=== PATIENT | male | born 1995 | race Caucasian/White ===

== ENCOUNTER 2017-08-19 17:10 | Emergency (ER) | payer OTHER ==
--- NOTE | 2017-08-19 18:03 | ED ---
General Adult HPI - General Chief complaint: Urogenital Stated complaint: poss std Time Seen by Provider: 08/19/17 17:39 Source: patient, RN notes reviewed Mode of arrival: ambulatory Limitations: no limitations - History of Present Illness Initial comments: Patient 22-year-old male presented to the emergency room today with a chief complaint of wanting to be tested for herpes. Patient states that his girlfriend told him that she tested positive. He states that his knowledge she has not had any lesion or breaks. He states he has not noticed any unexplained lesions or rashes. Patient denies any other concern for any other STDs. He denies any other complaints or symptoms. Patient denies any recent fever, chills , shortness of breath, chest pain, back pain, abdominal pain, nausea or vomiting , numbness or tingling, headaches or visual changes, or any other complaints. - Related Data Home Medications Medication Instructions Recorded Confirmed No Known Home Medications [No 08/19/17 08/19/17 Known Home Medications] Allergies Allergy/AdvReac Type Severity Reaction Status Date / Time No Known Allergies Allergy Verified 08/19/17 17:36 Review of Systems ROS Statement: Those systems with pertinent positive or pertinent negative responses have been documented in the HPI. ROS Other: All systems not noted in ROS Statement are negative. Past Medical History Past Medical History: No Reported History Additional Past Medical History / Comment(s): kidney stones History of Any Multi-Drug Resistant Organisms: None Reported Past Surgical History: No Surgical Hx Reported Past Psychological History: No Psychological Hx Reported Smoking Status: Never smoker Past Alcohol Use History: None Reported Past Drug Use History: None Reported General Exam - General Exam Comments Initial Comments: General: The patient is awake and alert, in no distress, and does not appear acutely ill. Eye: Pupils are equal, round and reactive to light, extra-ocular movements are intact. No nystagmus. There is normal conjunctiva bilaterally. No signs of icterus. Ears, nose, mouth and throat: There are moist mucous membranes and no oral lesions. Neck: The neck is supple, there is no tenderness or JVD. Musculoskeletal: Normal ROM, no tenderness. Strength 5/5. Sensation intact. Pulses equal bilaterally 2+. Neurological: A&O x 3. CN II-XII intact, There are no obvious motor or sensory deficits. Coordination appears grossly intact. Speech is normal. Skin: Skin is warm and dry and no rashes or lesions are noted. Psychiatric: Cooperative, appropriate mood & affect, normal judgment. Limitations: no limitations Course Vital Signs 08/19/17 17:29 Temperature 98.3 F Pulse Rate 112 H Respiratory 18 Rate Blood Pressure 131/85 O2 Sat by Pulse 97 Oximetry Medical Decision Making - Medical Decision Making 22-year-old male presenting to the emergency room 1 to be tested for herpes. States girlfriend tested positive. Patient's asymptomatic. The patient will have blood test performed here in the emergency room. Results did not come back today. Patient is advised to follow-up with family physician. Patient advised to return for any other concerns. Disposition Clinical Impression: Herpes exposure Disposition: HOME SELF-CARE Condition: Good Instructions: Genital Herpes Simplex (ED) Additional Instructions: Please follow up with family doctor for further evaluation and test results. Is patient prescribed a controlled substance at d/c from ED?: No Referrals: None,Stated [Primary Care Provider] - 1-2 days Clau Reynolds MD [STAFF PHYSICIAN] - 1-2 days Time of Disposition: 18:03
[2017-08-19 18:46] VITALS: BP 127/73; PULSE 95; RESP 16; TEMP 97.7
[2017-08-22 03:09] LABS: Herpes simplex I and/or II IgM 0.66 INDEX (<=0.90); Herpes simplex IgG I Ab 0.03 (< or = 0.90); Herpes simplex IgG II Ab 0.06 (< or = 0.90)
== END 2017-08-19 18:46 | disposition home or self-care (01) ==
LOC: EC 17:10
DX: Z20.2 Contact with and (suspected) exposure to infections with a predominantly sexual mode of transmission (principal)
CPT/HCPCS: 36415; 86694; 86695; 86696; 99283

== ENCOUNTER 2021-05-27 08:42 | Observation (INO) | payer OTHER ==
[2021-05-27] MEDS ORDERED: KETOROLAC 15 MG/ML 1 ML VIAL IVP STA (09:01)
[2021-05-27] MEDS ORDERED: HYDROmorphone 0.5 MG/0.5 ML SYRINGE IVP STA (09:01)
[2021-05-27] MEDS ORDERED: AMPICILLIN-SULBACTAM 3 GM in SODIUM CHLORIDE 0.9% 100 ML IVPB STA (09:07)
--- NOTE | 2021-05-27 09:07 | ED ---
General Adult HPI - General Chief complaint: Skin/Abscess/Foreign Body Stated complaint: Poss Abscess Time Seen by Provider: 05/27/21 08:50 Source: patient, RN notes reviewed, old records reviewed Mode of arrival: ambulatory Limitations: no limitations - History of Present Illness Initial comments: This is a 25-year-old male who presents emergency Department complaining that he has what he believes to be an abscess in the perineum area and perirectal area. Patient states it started about 4 days ago he thought it was just a rash. Progressed to swelling and extreme tenderness. Patient states she can't even barely walk it hurts so much. Patient states he thought he saw a little blood in the urine today as well. Patient denies any abdominal pain patient denies any nausea vomiting. Patient said diarrhea. Patient denies any recent fever chills or cough. Patient denies any history of similar. Patient denies any drug use. - Related Data Home Medications Medication Instructions Recorded Confirmed No Known Home Medications 08/19/17 08/19/17 Allergies Allergy/AdvReac Type Severity Reaction Status Date / Time No Known Allergies Allergy Verified 05/27/21 08:50 Review of Systems ROS Statement: Those systems with pertinent positive or pertinent negative responses have been documented in the HPI. ROS Other: All systems not noted in ROS Statement are negative. Past Medical History Past Medical History: No Reported History Additional Past Medical History / Comment(s): kidney stones History of Any Multi-Drug Resistant Organisms: None Reported Past Surgical History: No Surgical Hx Reported Past Psychological History: No Psychological Hx Reported Smoking Status: Current every day smoker Past Alcohol Use History: None Reported Past Drug Use History: None Reported General Exam - General Exam Comments Initial Comments: GENERAL: Patient is well-developed and well-nourished. Patient is nontoxic and well- hydrated and is in moderate distress. ENT: Neck is soft and supple. No significant lymphadenopathy is noted. Oropharynx is clear. Moist mucous membranes. Neck has full range of motion without eliciting any pain. EYES: The sclera were anicteric and conjunctiva were pink and moist. Extraocular movements were intact and pupils were equal round and reactive to light. Eyelids were unremarkable. PULMONARY: Unlabored respirations. Good breath sounds bilaterally. No audible rales rhonchi or wheezing was noted. CARDIOVASCULAR: There is a regular rate and rhythm without any murmurs gallops or rubs. ABDOMEN: Soft and nontender with normal bowel sounds. No palpable organomegaly was noted. There is no palpable pulsatile mass. GENITALIA: Testicles and scrotum show no swelling or tenderness. There is an area on the left perineum that appears to be some an abscess is swollen and exquisitely te nderness extends approximately 10 cm and is about 3 cm wide. SKIN: Skin is clear with no lesions or rashes and otherwise unremarkable. NEUROLOGIC: Patient is alert and oriented x3. Cranial nerves II through XII are grossly intact. Motor and sensory are also intact. Normal speech, volume and content. Symmetrical smile. MUSCULOSKELETAL: Normal extremities with adequate strength and full range of motion. LYMPHATICS: No significant lymphadenopathy is noted PSYCHIATRIC: Normal psychiatric evaluation. Limitations: no limitations Course Vital Signs 05/27/21 05/27/21 08:45 11:04 Temperature 98.9 F Pulse Rate 138 H 95 Respiratory 22 24 Rate Blood Pressure 157/122 145/87 O2 Sat by Pulse 97 100 Oximetry Procedures - Procedural Sedation Procedural Sedation Start Time: 11:00 Indications: incision and drainage of abscess ASA Class: II Mallampati Airway Score: 2 Preparation: monitoring specialist applied, pulse oximeter, supplemental O2 applied IV Propofol Dose (mgs): 125 Complications: none Patient Tolerated Procedure: well Medical Decision Making - Lab Data Result diagrams: 05/27/21 09:18 05/27/21 09:18 Lab Results 05/27/21 05/27/21 Range/Units 09:18 09:18 WBC 21.1 H (3.8-10.6) k/uL RBC 5.20 (4.30-5.90) m/uL Hgb 16.6 (13.0-17.5) gm/dL Hct 47.4 (39.0-53.0) % MCV 91.1 (80.0-100.0) fL MCH 31.9 (25.0-35.0) pg MCHC 35.1 (31.0-37.0) g/dL RDW 12.4 (11.5-15.5) % Plt Count 267 (150-450) k/uL MPV 8.7 Neutrophils % 88 % Lymphocytes % 6 % Monocytes % 5 % Eosinophils % 1 % Basophils % 0 % Neutrophils # 18.5 H (1.3-7.7) k/uL Lymphocytes # 1.3 (1.0-4.8) k/uL Monocytes # 1.0 (0-1.0) k/uL Eosinophils # 0.1 (0-0.7) k/uL Basophils # 0.1 (0-0.2) k/uL Sodium 137 (137-145) mmol/L Potassium 4.1 (3.5-5.1) mmol/L Chloride 104 (98-107) mmol/L Carbon Dioxide 17 L (22-30) mmol/L Anion Gap 16 mmol/L BUN 13 (9-20) mg/dL Creatinine 1.00 (0.66-1.25) mg/dL Est GFR (CKD-EPI)AfAm >90 (>60 ml/min/1.73 sqM) Est GFR (CKD-EPI)NonAf >90 (>60 ml/min/1.73 sqM) Glucose 120 H (74-99) mg/dL Calcium 9.6 (8.4-10.2) mg/dL Total Bilirubin 1.2 (0.2-1.3) mg/dL AST 30 (17-59) U/L ALT 36 (4-49) U/L Alkaline Phosphatase 102 (38-126) U/L Total Protein 8.4 H (6.3-8.2) g/dL Albumin 4.8 (3.5-5.0) g/dL Disposition Clinical Impression: Perineal abscess Disposition: ADMITTED IP TO THIS [facility] Referrals: Melody Delcid MD [Primary Care Provider] - 1-2 days Time of Disposition: 11:25
[2021-05-27 09:31] LABS: Basophils # (A) 0.1 k/uL (0-0.2); Basophils % (A) 0 %; Eosinophils # (A) 0.1 k/uL (0-0.7); Eosinophils % (A) 1 %; HCT 47.4 % (39.0-53.0); HGB 16.6 gm/dL (13.0-17.5); Lymphocytes # (A) 1.3 k/uL (1.0-4.8); Lymphocytes % (A) 6 %; MCH 31.9 pg (25.0-35.0); MCHC 35.1 g/dL (31.0-37.0); MCV 91.1 fL (80.0-100.0); Mean Platelet Volume 8.7; Monocytes % (A) 5 %; Neutrophils # (A) 18.5 k/uL (1.3-7.7); Neutrophils % (A) 88 %; Platelet Count 267 k/uL (150-450); RDW 12.4 % (11.5-15.5); WBC 21.1 k/uL (3.8-10.6)
[2021-05-27 09:37] LABS: ALT 36 U/L (4-49); AST 30 U/L (17-59); African American GFR (CKD) >90 (>60 ml/min/1.73 sqM); Albumin 4.8 g/dL (3.5-5.0); Alkaline Phosphatase 102 U/L (38-126); Anion Gap 16 mmol/L; Blood Urea Nitrogen 13 mg/dL (9-20); Calcium 9.6 mg/dL (8.4-10.2); Carbon Dioxide 17 mmol/L (22-30); Chloride 104 mmol/L (98-107); Glucose 120 mg/dL (74-99); Non-African American GFR(CKD) >90 (>60 ml/min/1.73 sqM); Potassium 4.1 mmol/L (3.5-5.1); Sodium 137 mmol/L (137-145); Total Bilirubin 1.2 mg/dL (0.2-1.3); Total Protein 8.4 g/dL (6.3-8.2)
[2021-05-27] MEDS ORDERED: LIDOCAINE 1%/EPI 1:200,000 MPF 10 ML VIAL SQ STA (10:46)
[2021-05-27] MEDS ORDERED: PROPOFOL 10 MG/ML 20 ML VIAL IV ONE (10:50)
[2021-05-27] MEDS ORDERED: LIDOCAINE 1%-EPI 1:100,000 20 ML VIAL SQ STA (10:59)
[2021-05-27] MEDS ORDERED: SODIUM CHLORIDE 0.9% 1,000 ML IV ONE (11:25)
[2021-05-27] MEDS ORDERED: ONDANSETRON 4 MG/2 ML VIAL IVP PRN (11:28)
--- NOTE | 2021-05-27 13:10 | P.GSHP ---
History of Present Illness H&P Date: 05/27/21 Chief Complaint: Perineal pain This a 25-year-old male with a 3 day history of perirectal pain. Patient states the pain is increased over the last 24 hours. He has had swelling on the left perianal area. Patient was seen in the emergency. Past Medical History Past Medical History: No Reported History Additional Past Medical History / Comment(s): kidney stones History of Any Multi-Drug Resistant Organisms: None Reported Past Surgical History: No Surgical Hx Reported Past Psychological History: No Psychological Hx Reported Smoking Status: Current every day smoker Past Alcohol Use History: None Reported Past Drug Use History: None Reported Medications and Allergies Home Medications Medication Instructions Recorded Confirmed Type No Known Home Medications 08/19/17 05/27/21 History Allergies Allergy/AdvReac Type Severity Reaction Status Date / Time No Known Allergies Allergy Verified 05/27/21 12:03 Surgical - Exam Vital Signs Temp Pulse Resp BP Pulse Ox 98.9 F 138 H 22 157/122 97 05/27/21 08:45 05/27/21 08:45 05/27/21 08:45 05/27/21 08:45 05/27/21 08:45 - General well developed, well nourished, moderate distress - Eyes PERRL - ENT normal pinna - Neck no masses - Respiratory normal expansion - Cardiovascular Rhythm: regular - Abdomen Abdomen: soft, non tender - Rectum Left gluteal perianal swelling. Results - Labs 05/27/21 09:18 05/27/21 09:18 Abnormal Lab Results - Last 24 Hours (Table) 05/27/21 05/27/21 Range/Units 09:18 09:18 WBC 21.1 H (3.8-10.6) k/uL Neutrophils # 18.5 H (1.3-7.7) k/uL Carbon Dioxide 17 L (22-30) mmol/L Glucose 120 H (74-99) mg/dL Total Protein 8.4 H (6.3-8.2) g/dL Diabetes panel 05/27/21 Range/Units 09:18 Sodium 137 (137-145) mmol/L Potassium 4.1 (3.5-5.1) mmol/L Chloride 104 (98-107) mmol/L Carbon Dioxide 17 L (22-30) mmol/L BUN 13 (9-20) mg/dL Creatinine 1.00 (0.66-1.25) mg/dL Glucose 120 H (74-99) mg/dL Calcium 9.6 (8.4-10.2) mg/dL AST 30 (17-59) U/L ALT 36 (4-49) U/L Alkaline Phosphatase 102 (38-126) U/L Total Protein 8.4 H (6.3-8.2) g/dL Albumin 4.8 (3.5-5.0) g/dL Calcium panel 05/27/21 Range/Units 09:18 Calcium 9.6 (8.4-10.2) mg/dL Albumin 4.8 (3.5-5.0) g/dL Pituitary panel 05/27/21 Range/Units 09:18 Sodium 137 (137-145) mmol/L Potassium 4.1 (3.5-5.1) mmol/L Chloride 104 (98-107) mmol/L Carbon Dioxide 17 L (22-30) mmol/L BUN 13 (9-20) mg/dL Creatinine 1.00 (0.66-1.25) mg/dL Glucose 120 H (74-99) mg/dL Calcium 9.6 (8.4-10.2) mg/dL Adrenal panel 05/27/21 Range/Units 09:18 Sodium 137 (137-145) mmol/L Potassium 4.1 (3.5-5.1) mmol/L Chloride 104 (98-107) mmol/L Carbon Dioxide 17 L (22-30) mmol/L BUN 13 (9-20) mg/dL Creatinine 1.00 (0.66-1.25) mg/dL Glucose 120 H (74-99) mg/dL Calcium 9.6 (8.4-10.2) mg/dL Total Bilirubin 1.2 (0.2-1.3) mg/dL AST 30 (17-59) U/L ALT 36 (4-49) U/L Alkaline Phosphatase 102 (38-126) U/L Total Protein 8.4 H (6.3-8.2) g/dL Albumin 4.8 (3.5-5.0) g/dL Assessment and Plan Assessment: (I abscess. Patient will undergo incision and drainage.
--- NOTE | 2021-05-27 13:12 | P.OP ---
Date of Procedure: 05/27/21 Preoperative Diagnosis: Perianal abscess Postoperative Diagnosis: Perianal abscess Procedure(s) Performed: Incision and drainage of left perianal abscess Anesthesia: MAC Surgeon: Yoandy Aldridge Estimated Blood Loss (ml): 5 Pathology: other (Wound culture) Condition: stable Disposition: floor Description of Procedure: Patient's placed on his bed in the lateral position. He received IV sedation. This was administered by Dr. Schwartz in the emergency room. Patient's anus was prepped and draped usual sterile fashion. The area of the small swelling on the left side of the perianal area was incised with 11 blade after the air was anesthetized 1% local Xylocaine with epinephrine. Small amount. Fluid was removed. The area was probed with a hemostat. No other fluid was seen. The wound was then packed with a wet-to-dry 4 x 4 sponge. Sterile dressing applied. Patient tolerated the procedure well.
--- NOTE | 2021-05-27 13:37 | P.CONS ---
History of Present Illness - Reason for Consult Perirectal abscess - History of Present Illness 25-year-old male came in with the possible abscess in the perineum found to have perirectal abscess neurosurgery was consulted patient underwent the bedside drainage and patient is presently on Unasyn and metronidazole and wound cultures were obtained patient was bit tachycardic. Patient has some anion gap metabolic acidosis. Lactic acid levels were not obtained. Patient has leukocytosis with a white blood cell count of 21,000. Doesn't have any fever REVIEW OF SYSTEMS: CONSTITUTIONAL: No fever, no malaise, no fatigue. HEENT: No recent visual problems or hearing problems. Denied any sore throat. CARDIOVASCULAR: No chest pain, orthopnea, PND, no palpitations, no syncope. PULMONARY: No shortness of breath, no cough, no hemoptysis. GASTROINTESTINAL: No diarrhea, no nausea, no vomiting, no abdominal pain. NEUROLOGICAL: No headaches, no weakness, no numbness. HEMATOLOGICAL: Denies any bleeding or petechiae. GENITOURINARY: Denies any burning micturition, frequency, or urgency. MUSCULOSKELETAL/RHEUMATOLOGICAL: Denies any joint pain, swelling, or any muscle pain. ENDOCRINE: Denies any polyuria or polydipsia. The rest of the 14-point review of systems is negative. PHYSICAL EXAMINATION: GENERAL: The patient is alert and oriented x3, not in any acute distress. Well developed, well nourished. HEENT: Pupils are round and equally reacting to light. EOMI. No scleral icterus. No conjunctival pallor. Normocephalic, atraumatic. No pharyngeal erythema. No thyromegaly. CARDIOVASCULAR: S1 and S2 present. No murmurs, rubs, or gallops. PULMONARY: Chest is clear to auscultation, no wheezing or crackles. ABDOMEN: Soft, nontender, nondistended, normoactive bowel sounds. No palpable organomegaly. Perirectal area is packed MUSCULOSKELETAL: No joint swelling or deformity. EXTREMITIES: No cyanosis, clubbing, or pedal edema. NEUROLOGICAL: Gross neurological examination did not reveal any focal deficits. SKIN: No rashes. Assessment and plan -Perirectal abscess: Status post drainage patient is on appropriate antibiotics which will be continued Anion gap metabolic acidosis probably lactic is doses of the lactic acid levels were not obtained and at admission will continue with IV fluids and repeat labs tomorrow -Leukocytosis due to assessment #1 -Obesity DVT prophylaxis: Early ambulation Past Medical History Past Medical History: No Reported History Additional Past Medical History / Comment(s): kidney stones History of Any Multi-Drug Resistant Organisms: None Reported Past Surgical History: No Surgical Hx Reported Past Psychological History: No Psychological Hx Reported Smoking Status: Current every day smoker Past Alcohol Use History: None Reported Past Drug Use History: None Reported Medications and Allergies Home Medications Medication Instructions Recorded Confirmed Type No Known Home Medications 08/19/17 05/27/21 History Allergies Allergy/AdvReac Type Severity Reaction Status Date / Time No Known Allergies Allergy Verified 05/27/21 12:03 Physical Exam Vitals: Vital Signs Temp Pulse Pulse Resp BP BP Pulse Ox 05/27/21 12:55 98.6 F 113 H 16 127/85 96 05/27/21 12:30 98.0 F 69 18 134/86 97 05/27/21 11:25 86 18 138/95 97 05/27/21 11:20 87 18 137/89 100 05/27/21 11:10 89 18 135/76 100 05/27/21 11:04 95 24 145/87 100 05/27/21 11:00 96 18 148/87 100 05/27/21 08:45 98.9 F 138 H 22 157/122 97 Intake and Output 05/26/21 05/27/21 05/27/21 22:59 06:59 14:59 Other: Weight 120.202 kg Results CBC & Chem 7: 05/27/21 09:18 05/27/21 09:18 Labs: Abnormal Lab Results - Last 24 Hours (Table) 05/27/21 05/27/21 Range/Units 09:18 09:18 WBC 21.1 H (3.8-10.6) k/uL Neutrophils # 18.5 H (1.3-7.7) k/uL Carbon Dioxide 17 L (22-30) mmol/L Glucose 120 H (74-99) mg/dL Total Protein 8.4 H (6.3-8.2) g/dL
[2021-05-27] MEDS: AMPICILLIN-SULBACTAM 3 GM in SODIUM CHLORIDE 0.9% 100 ML IVPB SCH ×2 (15:09→20:48)
[2021-05-27] MEDS: metroNIDAZOLE-NS PMX 500 MG in SALINE 1 100ML.BAG IVPB SCH ×2 (16:37→23:53)
[2021-05-27] MEDS: HYDROmorphone 0.5 MG/0.5 ML SYRINGE IVP PRN ×2 (17:11→20:48)
--- NOTE | 2021-05-27 23:09 | P.CONS ---
History of Present Illness - Reason for Consult Consult date: 05/27/21 Perianal abscess Requesting physician: Yoandy Aldridge - Chief Complaint Perianal pain x 4 days - History of Present Illness Patient is a 25-year-old male presenting to the ER this morning with concern for pain swelling to the perirectal area has been going on for about 4 days before presentation to the hospital patient denies any history of any trauma has been complaining of significant swelling and tenderness that he is barely able to walk describing the pain to be throbbing almost 10 out of 10 in severity with no radiation and denies having any drainage with the symptom the patient was evaluated by the ER physician on arrival to the ER patient was afebr ile patient unremarkable 21,000 with a left shift kidney function was normal patient has been diagnosed with a perirectal abscess was admitted to the general surgery patient did have a I&D of the left gluteal abscess no cultures patient has been started on Unasyn infectious disease was consulted for further management of antibiotic therapy Review of Systems Positive point has been mentioned in the HPI rest of the systems are negative Past Medical History Past Medical History: No Reported History Additional Past Medical History / Comment(s): kidney stones History of Any Multi-Drug Resistant Organisms: None Reported Past Surgical History: No Surgical Hx Reported Past Psychological History: No Psychological Hx Reported Smoking Status: Current every day smoker Past Alcohol Use History: None Reported Past Drug Use History: None Reported Medications and Allergies Home Medications Medication Instructions Recorded Confirmed Type No Known Home Medications 08/19/17 05/27/21 History Allergies Allergy/AdvReac Type Severity Reaction Status Date / Time No Known Allergies Allergy Verified 05/27/21 12:03 Physical Exam Vitals: Vital Signs Temp Pulse Pulse Resp BP BP Pulse Ox 05/27/21 12:55 98.6 F 113 H 16 127/85 96 05/27/21 12:30 98.0 F 69 18 134/86 97 05/27/21 11:25 86 18 138/95 97 05/27/21 11:20 87 18 137/89 100 05/27/21 11:10 89 18 135/76 100 05/27/21 11:04 95 24 145/87 100 05/27/21 11:00 96 18 148/87 100 05/27/21 08:45 98.9 F 138 H 22 157/122 97 Intake and Output 05/26/21 05/27/2105/27/22 22:59 06:59 14:59 Other: Weight 120.202 kg GENERAL DESCRIPTION: Young male lying in bed, no distress. No tachypnea or accessory muscle of respiration use. HEENT: Shows Pallor , no scleral icterus. Oral mucous membrane is dry. No pharyngeal erythema or thrush NECK: Trachea central, no thyromegaly. LUNGS: Unlabored breathing. Clear to auscultation anteriorly. No wheeze or crackle. HEART: S1, S2, regular rate and rhythm. No loud murmur ABDOMEN: Soft, no tenderness , guarding or rigidity, no organomegaly EXTREMITIES: No edema of feet. SKIN: No rash, no masses palpable. NEUROLOGICAL: The patient is awake, alert, oriented x3, mood and affect normal. Results CBC & Chem 7: 05/27/21 09:18 05/27/21 09:18 Labs: Abnormal Lab Results - Last 24 Hours (Table) 05/27/21 05/27/21 Range/Units 09:18 09:18 WBC 21.1 H (3.8-10.6) k/uL Neutrophils # 18.5 H (1.3-7.7) k/uL Carbon Dioxide 17 L (22-30) mmol/L Glucose 120 H (74-99) mg/dL Total Protein 8.4 H (6.3-8.2) g/dL Assessment and Plan (1) Perineal abscess Current Visit: Yes Status: Acute Code(s): L02.215 - CUTANEOUS ABSCESS OF PERINEUM SNOMED Code(s): 75069868 Plan: 1patient presented to hospital with perianal pain and swelling has been diagnosed with left perianal abscess s/p drainage in this patient who did not have any history of perianal abscess and no exposure antibiotic more likely sensitive pathogen 2-continue with Unasyn 3 g every 6 hours and hopefully finishing therapy with oral antibiotics when stable for discharge in the form of Augmentin We will follow on clinical condition and cultures to further adjust medication if needed Thank you for this consultation will follow this patient along with you Time with Patient: Greater than 30
[2021-05-28] MEDS: HYDROmorphone 0.5 MG/0.5 ML SYRINGE IVP PRN ×6 (00:57→23:36)
[2021-05-28] MEDS: AMPICILLIN-SULBACTAM 3 GM in SODIUM CHLORIDE 0.9% 100 ML IVPB SCH ×4 (02:38→20:13)
[2021-05-28] MEDS ORDERED: IOPAMIDOL CONTRAST (ORAL USE) VIAL PO PRN (08:52)
[2021-05-28] MEDS: metroNIDAZOLE-NS PMX 500 MG in SALINE 1 100ML.BAG IVPB SCH ×3 (09:01→23:35)
[2021-05-28 11:47] LABS: Basophils % (A) 0 %; Eosinophils # (A) 0.1 k/uL (0-0.7); Eosinophils % (A) 1 %; HCT 43.6 % (39.0-53.0); HGB 14.7 gm/dL (13.0-17.5); Lymphocytes # (A) 1.7 k/uL (1.0-4.8); Lymphocytes % (A) 12 %; MCH 31.9 pg (25.0-35.0); MCHC 33.7 g/dL (31.0-37.0); MCV 94.6 fL (80.0-100.0); Mean Platelet Volume 8.9; Monocytes % (A) 7 %; Neutrophils # (A) 11.1 k/uL (1.3-7.7); Neutrophils % (A) 78 %; Platelet Count 224 k/uL (150-450); RBC 4.61 m/uL (4.30-5.90); RDW 11.9 % (11.5-15.5); WBC 14.2 k/uL (3.8-10.6)
--- NOTE | 2021-05-28 13:44 | CT ---
EXAMINATION TYPE: CT abdomen pelvis w con DATE OF EXAM: 05/28/2021 COMPARISON: None. HISTORY: Rectal abscess CT DLP: 2233.70 mGycm, Automated Exposure Control for Dose Reduction was Utilized. CONTRAST: CT scan of the abdomen and pelvis is performed with oral and with IV Contrast, patient injected with 100 mL of Isovue 300. FINDINGS: LUNG BASES: No significant abnormality is appreciated. LIVER/GB: Tiny low dense dependent gallstones. No surrounding fluid or fat stranding around gallbladd er. PANCREAS: No significant abnormality is seen. SPLEEN: No significant abnormality is seen. ADRENALS: No significant abnormality is seen. KIDNEYS: No significant abnormality is seen. BOWEL: Suboptimal as oral contrast does not reach level of the terminal ileum making evaluation of di stal bowel suboptimal. No suspicious small or large bowel dilatation. Normal appearing appendix from cecum is identified. There is linear 1.5 cm density AP diameter by roughly 6 x 6 mm transversely and craniocaudal diameter axial image 101 and sagittal image 82 of uncertain etiology suspect possible fo reign body. Immediately anterior to this there is tiny 2.5 cm AP diameter by 1.1 cm transverse rim-en hancing thin-walled fluid collection axial image 10 1 x 2.1 cm craniocaudal dimension coronal image 7 5 consistent with adjacent developing abscess. Findings were level of the inferior rectum with modera te ill-defined fluid and fat stranding extending laterally. There is second inferior thin-walled flui d collection with air-fluid level slightly larger measuring 4.9 cm AP diameter by 1.5 cm transversely by 4.8 cm parapelvic diameter axial image 106 and coronal image 68. PROSTATE/SEMINAL VESICLES: No gross abnormality seen. LYMPH NODES: No greater than 1cm abdominal or pelvic lymph nodes are appreciated. OSSEOUS STRUCTURES: Nonspecific well-defined lucent lesion in the L3 vertebra image 66 favor benign i n patient of this age. OTHER: No significant additional abnormality is seen. IMPRESSION: Moderate inflammatory change in level of rectum and anus with 2 small to tiny thin-walled fluid collections or abscesses. There is suspected retained foreign body just posterior to the small er more superior abscess. Perfect serve notification to ordering surgeon performed at time of dictation.
--- NOTE | 2021-05-28 18:19 | P.PN ---
Progress Note - Text Progress Note Date: 05/28/21 The patient states he feels better. His white count is decreased to 14,000. His pain is decreased as well. CAT scan of the pelvis performed. I discussed CAT scan with the radiologist. There is evidence of a foreign body just inside his rectum. The foreign body measures 5 x 2 mm in size. The patient denies any anal instrumentation. On exam vital signs are stable. Abdomen soft. I'm unsure what the foreign body is. The patient is clinically improving. He'll be observed.
--- NOTE | 2021-05-28 18:32 | P.PN ---
Subjective Progress Note Date: 05/28/21 - Reason for Consult Perirectal abscess - History of Present Illness 25-year-old male came in with the possible abscess in the perineum found to have perirectal abscess neurosurgery was consulted patient underwent the bedside drainage and patient is presently on Unasyn and metronidazole and wound cultures were obtained patient was bit tachycardic. Patient has some anion gap metabolic acidosis. Lactic acid levels were not obtained. Patient has leukocytosis with a white blood cell count of 21,000. Doesn't have any fever 05/28/2021 Patient is seen and evaluated in follow-up today and continues with pain in the perineal area but states is currently controlled as he just received IV dilaudid. Patient was extremely drowsy on exam. Patient is scheduled to undergo repeat CT abdomen pelvis to assess the abscess. Patient is continued on IV anti biotics with ID following closely. WBC trending down. Will repeat am labs Review of systems: Constitutional: No reports of fatigue, fever, or chills Cardiovascular: No reports of chest pain or palpitations Respiratory: No reports of shortness of breath or cough GI: No reports of nausea, vomiting, or diarrhea, reports rectal pain : No reports of dysuria or retention Neurovascular: No reports of weakness or numbness All medications have been reviewed Active Medications Hydromorphone HCl (Hydromorphone 0.5 Mg/0.5 Ml Syringe) 0.5 mg IVP Q4HR PRN PRN Reason: Pain Last Admin: 05/28/21 09:02 Dose: 0.5 mg Documented by: Ampicillin Sodium/Sulbactam (Sodium 3 gm/ Sodium Chloride) 100 mls @ 200 mls/hr IVPB Q6H [facility]; Protocol Last Admin: 05/28/21 09:01 Dose: 200 mls/hr Documented by: Metronidazole 500 mg/ IV (Solution) 100 mls @ 100 mls/hr IVPB Q8HR [facility]; Pro tocol Last Admin: 05/28/21 09:01 Dose: 100 mls/hr Documented by: Iopamidol (Iopamidol Contrast (Oral Use) Vial) 30 ml PO Q60M PRN PRN Reason: CT Scan Stop: 05/29/21 08:52 Ondansetron HCl (Ondansetron 4 Mg/2 Ml Vial) 4 mg IVP Q6HR PRN PRN Reason: Nausea And Vomiting PHYSICAL EXAMINATION: GENERAL: The patient is alert and oriented x3, not in any acute distress. lethargic. Obese. Well developed, well nourished. HEENT: Pupils are round and equally reacting to light. EOMI. No scleral icterus. No conjunctival pallor. Normocephalic, atraumatic. No pharyngeal erythema. No thyromegaly. CARDIOVASCULAR: S1 and S2 present. No murmurs, rubs, or gallops. PULMONARY: Chest is clear to auscultation, no wheezing or crackles. ABDOMEN: Soft, nontender, nondistended, normoactive bowel sounds. No palpable organomegaly. Perirectal area is packed MUSCULOSKELETAL: No joint swelling or deformity. EXTREMITIES: No cyanosis, clubbing, or pedal edema. NEUROLOGICAL: Gross neurological examination did not reveal any focal deficits. SKIN: No rashes. Assessment: -Perirectal abscess: Status post drainage, continued on IV abx, ID following. Repeat CT abdomen pelvis ordered by surgery -Anion gap metabolic acidosis probably lactic acidosis, improved -Leukocytosis due to assessment #1, trending down -Obesity -DVT prophylaxis: Early ambulation Plan: Recommend to continue with IV abx with ID following. Continue local wound care and encouraged increased activity as tolerated. CT abdomen pelvis ordered for today and will await report. Recommend repeat labs in the am. We will continue to follow with surgery during hospitalization. Thank you for this consultation. The impression and plan of care has been dictated by Aliyah Lopez, Nurse Practitioner as directed. Dr. Mike MD I have performed a history and examination and MDM of this patient, discussed the same with the dictator, and agree with the dictator's assessment and plan as written ,documented as a scribe. Based on total visit time, I have performed more than 50% of the visit. Objective - Vital Signs Vital signs: Vital Signs Temp 98.7 F 05/28/21 07:00 Pulse 104 H 05/28/21 07:00 Resp 12 05/28/21 07:00 BP 128/85 05/28/21 07:00 Pulse Ox 97 05/28/21 07:00 Intake & Output 05/27/21 05/28/21 05/28/21 18:59 06:59 18:59 Intake Total 118 480 Balance 118 480 Weight 120.202 kg Intake: Oral 118 480 Other: # Voids 1 1 - Labs CBC & Chem 7: 05/28/21 11:23 05/27/21 09:18
--- NOTE | 2021-05-28 20:54 | P.PN ---
Subjective Progress Note Date: 05/28/21 Principal diagnosis: Left perianal abscess Patient is a 25-year-old male presenting to the hospital with left perirectal pain swelling and redness has been diagnosed and abscess status post surgical drainage. On today's evaluation that is 05/28/2021, the patient denies having any fever or chills patient be complaining of more pain to the perianal area after removal of the packing, the patient denies having any chest pain shortness of breath or cough no nausea no vomiting no abdominal pain or diarrhea Objective - Vital Signs Vital signs: Vital Signs Temp 98.7 F 05/28/21 07:00 Pulse 104 H 05/28/21 08:00 Resp 12 05/28/21 08:00 BP 128/85 05/28/21 07:00 Pulse Ox 97 05/28/21 07:00 Intake & Output 05/27/21 05/28/21 05/28/21 18:59 06:59 18:59 Intake Total 118 480 Balance 118 480 Weight 120.202 kg Intake: Oral 118 480 Other: # Voids 1 1 - Exam GENERAL DESCRIPTION: Young male lying in bed in no distress RESPIRATORY SYSTEM: Unlabored breathing , decreased breath sounds at bases HEART: S1 S2 regular rate and rhythm , ABDOMEN: Soft , no tenderness EXTREMITIES: No edema feet - Labs CBC & Chem 7: 05/28/21 11:23 05/27/21 09:18 Labs: Abnormal Lab Results - Last 24 Hours (Table) 05/28/21 Range/Units 11:23 WBC 14.2 H (3.8-10.6) k/uL Neutrophils # 11.1 H (1.3-7.7) k/uL Microbiology - Last 24 Hours (Table) 05/27/21 09:15 Blood Culture - Preliminary Blood No Growth after 24 hours 05/27/21 09:00 Blood Culture - Preliminary Blood No Growth after 24 hours Assessment and Plan (1) Perineal abscess Current Visit: Yes Status: Acute Code(s): L02.215 - CUTANEOUS ABSCESS OF PERINEUM SNOMED Code(s): 43993271 Plan: 1patient presented to hospital with perianal pain and swelling has been diagnosed with left perianal abscess s/p drainage in this patient who did not have any history of perianal abscess and no exposure to antibiotic more likely sensitive pathogen 2-patient to continue with Unasyn 3 g every 6 hours and monitor his clinical course closely Time with Patient: Less than 30
[2021-05-29] MEDS: AMPICILLIN-SULBACTAM 3 GM in SODIUM CHLORIDE 0.9% 100 ML IVPB SCH ×4 (02:42→20:39)
[2021-05-29] MEDS: HYDROmorphone 0.5 MG/0.5 ML SYRINGE IVP PRN (08:00)
[2021-05-29] MEDS: metroNIDAZOLE-NS PMX 500 MG in SALINE 1 100ML.BAG IVPB SCH ×2 (08:01→17:57)
[2021-05-29 09:52] LABS: Basophils # (A) 0.1 k/uL (0-0.2); Basophils % (A) 1 %; Eosinophils # (A) 0.3 k/uL (0-0.7); Eosinophils % (A) 3 %; HCT 40.9 % (39.0-53.0); HGB 13.4 gm/dL (13.0-17.5); Lymphocytes # (A) 1.3 k/uL (1.0-4.8); Lymphocytes % (A) 14 %; MCH 31.1 pg (25.0-35.0); MCHC 32.9 g/dL (31.0-37.0); MCV 94.6 fL (80.0-100.0); Mean Platelet Volume 8.6; Monocytes # (A) 0.5 k/uL (0-1.0); Monocytes % (A) 6 %; Neutrophils # (A) 6.7 k/uL (1.3-7.7); Neutrophils % (A) 75 %; Platelet Count 227 k/uL (150-450); RBC 4.32 m/uL (4.30-5.90); RDW 11.8 % (11.5-15.5)
[2021-05-29 10:02] LABS: African American GFR (CKD) >90 (>60 ml/min/1.73 sqM); Anion Gap 8 mmol/L; Blood Urea Nitrogen 9 mg/dL (9-20); Calcium 8.6 mg/dL (8.4-10.2); Carbon Dioxide 24 mmol/L (22-30); Chloride 106 mmol/L (98-107); Glucose 96 mg/dL (74-99); Non-African American GFR(CKD) >90 (>60 ml/min/1.73 sqM); Potassium 3.9 mmol/L (3.5-5.1); Sodium 138 mmol/L (137-145)
--- NOTE | 2021-05-29 12:51 | P.PN ---
Progress Note - Text Progress Note Date: 05/29/21 Patient feels slightly better. His white count is 9. He denies any abdominal pain. On exam vital signs are stable. Abdomen is soft. There is less swelling of his perianal area. Status post incision and drainage of. A biopsies. Patient to receive IV antibiotics. He'll be observed closely.
[2021-05-29] MEDS: HYDROcodone/APAP 5-325MG 1 EACH TAB PO PRN (16:28)
--- NOTE | 2021-05-30 00:34 | P.PN ---
Subjective Progress Note Date: 05/29/21 - Reason for Consult Perirectal abscess - History of Present Illness 25-year-old male came in with the possible abscess in the perineum found to have perirectal abscess neurosurgery was consulted patient underwent the bedside drainage and patient is presently on Unasyn and metronidazole and wound cultures were obtained patient was bit tachycardic. Patient has some anion gap metabolic acidosis. Lactic acid levels were not obtained. Patient has leukocytosis with a white blood cell count of 21,000. Doesn't have any fever 05/28/2021 Patient is seen and evaluated in follow-up today and continues with pain in the perineal area but states is currently controlled as he just received IV dilaudid. Patient was extremely drowsy on exam. Patient is scheduled to undergo repeat CT abdomen pelvis to assess the abscess. Patient is continued on IV anti biotics with ID following closely. WBC trending down. Will repeat am labs 05/29/2021 Patient is seen in follow up and WBC is within normal limits and other labs reviewed. Patient is afebrile. Patient reports to some improvement in swelling in the area. Patient had been continuously receiving IV pain medications and heavily sedated. Will add oral and encouraged limiting IV dilaudid use. Encouraged increased activity. Patient denies any chest pain or shortness of breath. Review of systems: Constitutional: No reports of fatigue, fever, or chills Cardiovascular: No reports of chest pain or palpitations Respiratory: No reports of shortness of breath or cough GI: No reports of nausea, vomiting, or diarrhea, reports rectal pain : No reports of dysuria or retention Neurovascular: No reports of weakness or numbness All medications have been reviewed Active Medications Hydromorphone HCl (Hydromorphone 0.5 Mg/0.5 Ml Syringe) 0.5 mg IVP Q4HR PRN PRN Reason: Pain Last Admin: 05/28/21 09:02 Dose: 0.5 mg Documented by: Ampicillin Sodium/Sulbactam (Sodium 3 gm/ Sodium Chloride) 100 mls @ 200 mls/hr IVPB Q6H [facility]; Protocol Last Admin: 05/28/21 09:01 Dose: 200 mls/hr Documented by: Metronidazole 500 mg/ IV (Solution) 100 mls @ 100 mls/hr IVPB Q8HR [facility]; Pr otocol Last Admin: 05/28/21 09:01 Dose: 100 mls/hr Documented by: Iopamidol (Iopamidol Contrast (Oral Use) Vial) 30 ml PO Q60M PRN PRN Reason: CT Scan Stop: 05/29/21 08:52 Ondansetron HCl (Ondansetron 4 Mg/2 Ml Vial) 4 mg IVP Q6HR PRN PRN Reason: Nausea And Vomiting PHYSICAL EXAMINATION: GENERAL: The patient is alert and oriented x3, not in any acute distress. lethargic. Obese. Well developed, well nourished. HEENT: Pupils are round and equally reacting to light. EOMI. No scleral icterus. No conjunctival pallor. Normocephalic, atraumatic. No pharyngeal erythema. No thyromegaly. CARDIOVASCULAR: S1 and S2 present. No murmurs, rubs, or gallops. PULMONARY: Chest is clear to auscultation, no wheezing or crackles. ABDOMEN: Soft, nontender, nondistended, normoactive bowel sounds. No palpable organomegaly. Perirectal area with less swelling MUSCULOSKELETAL: No joint swelling or deformity. EXTREMITIES: No cyanosis, clubbing, or pedal edema. NEUROLOGICAL: Gross neurological examination did not reveal any focal deficits. SKIN: No rashes. Assessment: -Perirectal abscess: Status post drainage, continued on IV abx, ID following. -Anion gap metabolic acidosis probably lactic acidosis, improved -Leukocytosis due to assessment #1, improved -Obesity -DVT prophylaxis: Early ambulation Plan: Recommend to continue with IV abx with ID following. Continue local wound care a nd encouraged increased activity as tolerated. Repeat labs within normal limits today and WBC is WNL.. We will continue to follow with surgery during hospitalization. Thank you for this consultation. The impression and plan of care has been dictated by Aliyah Lopez, Nurse Practitioner as directed. Dr. Mike MD I have performed a history and examination and MDM of this patient, discussed the same with the dictator, and agree with the dictator's assessment and plan as written ,documented as a scribe. Based on total visit time, I have performed more than 50% of the visit. Objective - Vital Signs Vital signs: Vital Signs Temp 97.5 F L 05/29/21 07:00 Pulse 65 05/29/21 07:00 Resp 16 05/29/21 07:00 BP 110/67 05/29/21 07:00 Pulse Ox 100 05/29/21 07:00 Intake & Output 05/28/21 05/29/21 05/29/21 18:59 06:59 18:59 Intake Total 1078 118 Balance 1078 118 Intake: Oral 1078 118 Other: # Voids 1 1 # Bowel Movements 1 - Labs CBC & Chem 7: 05/29/21 09:31 05/29/21 09:31 Labs: Abnormal Lab Results - Last 24 Hours (Table) 05/28/21 Range/Units 11:23 WBC 14.2 H (3.8-10.6) k/uL Neutrophils # 11.1 H (1.3-7.7) k/uL Microbiology - Last 24 Hours (Table) 05/27/21 09:15 Blood Culture - Preliminary Blood No Growth after 24 hours 05/27/21 09:00 Blood Culture - Preliminary Blood No Growth after 24 hours
[2021-05-30] MEDS: metroNIDAZOLE-NS PMX 500 MG in SALINE 1 100ML.BAG IVPB SCH ×2 (01:00→07:34)
[2021-05-30] MEDS: HYDROcodone/APAP 5-325MG 1 EACH TAB PO PRN (01:05)
[2021-05-30] MEDS: AMPICILLIN-SULBACTAM 3 GM in SODIUM CHLORIDE 0.9% 100 ML IVPB SCH ×2 (04:17→11:54)
[2021-05-30 07:26] VITALS: BP 117/76; PULSE 56; RESP 18; TEMP 97.6
--- NOTE | 2021-05-30 15:38 | P.PN ---
Subjective Progress Note Date: 05/30/21 - Reason for Consult Perirectal abscess - History of Present Illness 25-year-old male came in with the possible abscess in the perineum found to have perirectal abscess neurosurgery was consulted patient underwent the bedside drainage and patient is presently on Unasyn and metronidazole and wound cultures were obtained patient was bit tachycardic. Patient has some anion gap metabolic acidosis. Lactic acid levels were not obtained. Patient has leukocytosis with a white blood cell count of 21,000. Doesn't have any fever 05/28/2021 Patient is seen and evaluated in follow-up today and continues with pain in the perineal area but states is currently controlled as he just received IV dilaudid. Patient was extremely drowsy on exam. Patient is scheduled to undergo repeat CT abdomen pelvis to assess the abscess. Patient is continued on IV anti biotics with ID following closely. WBC trending down. Will repeat am labs 05/29/2021 Patient is seen in follow up and WBC is within normal limits and other labs reviewed. Patient is afebrile. Patient reports to some improvement in swelling in the area. Patient had been continuously receiving IV pain medications and heavily sedated. Will add oral and encouraged limiting IV dilaudid use. Encouraged increased activity. Patient denies any chest pain or shortness of breath. 05/30/2021 Patient is seen this morning currently awake and alert and oriented 3 and continues with some discomfort reported as he states they removed the packing this morning. Patient is continue with warm soaks and avoiding that area and offload with pressure and will be continued on oral antibiotics in the form of Levaquin and Flagyl with close outpatient follow-up with Dr. Aldridge. Patient tolerating diet with no reports of nausea or vomiting noted. Patient is afebrile and denies any chest pain or shortness of breath. Patient is being discharged today. Review of systems: Constitutional: No reports of fatigue, fever, or chills Cardiovascular: No reports of chest pain or palpitations Respiratory: No reports of shortness of breath or cough GI: No reports of nausea, vomiting, or diarrhea, reports rectal pain : No reports of dysuria or retention Neurovascular: No reports of weakness or numbness All medications have been reviewed Active Medications Hydromorphone HCl (Hydromorphone 0.5 Mg/0.5 Ml Syringe) 0.5 mg IVP Q4HR PRN PRN Reason: Pain Last Admin: 05/28/21 09:02 Dose: 0.5 mg Documented by: Ampicillin Sodium/Sulbactam (Sodium 3 gm/ Sodium Chloride) 100 mls @ 200 mls/hr IVPB Q6H [facility]; Protocol Last Admin: 05/28/21 09:01 Dose: 200 mls/hr Documented by: Metronidazole 500 mg/ IV (Solution) 100 mls @ 100 mls/hr IVPB Q8HR [facility]; Protocol Last Admin: 05/28/21 09:01 Dose: 100 mls/hr Documented by: Iopamidol (Iopamidol Contrast (Oral Use) Vial) 30 ml PO Q60M PRN PRN Reason: CT Scan Stop: 05/29/21 08:52 Ondansetron HCl (Ondansetron 4 Mg/2 Ml Vial) 4 mg IVP Q6HR PRN PRN Reason: Nausea And Vomiting PHYSICAL EXAMINATION: GENERAL: The patient is alert and oriented x3, not in any acute distress. Awake today. Obese. Well developed, well nourished. HEENT: Pupils are round and equally reacting to light. EOMI. No scleral icterus. No conjunctival pallor. Normocephalic, atraumatic. No pharyngeal erythema. No thyromegaly. CARDIOVASCULAR: S1 and S2 present. No murmurs, rubs, or gallops. PULMONARY: Chest is clear to auscultation, no wheezing or crackles. ABDOMEN: Soft, nontender, nondistended, normoactive bowel sounds. No palpable organomegaly. Perirectal area with less swelling and packing was removed MUSCULOSKELETAL: No joint swelling or deformity. EXTREMITIES: No cyanosis, clubbing, or pedal edema. NEUROLOGICAL: Gross neurological examination did not reveal any focal deficits. SKIN: No rashes. Assessment: -Perirectal abscess: Status post drainage, continued on IV abx, ID following. I&D packing was removed today -Anion gap metabolic acidosis probably lactic acidosis, improved -Leukocytosis due to assessment #1, improved -Obesity -DVT prophylaxis: Early ambulation Plan: Recommend to continue with oral antibiotics with ID following. Continue local wound care and encouraged increased activity as tolerated. Packing was removed from the ramesh area and patient reports to some discomfort in that area and patient is to continue with keeping that area clean and continued warm soaks daily. Patient will be discharged today on Flagyl and Levaquin with close outpatient follow-up with general surgery. Encourage the patient to follow-up with primary care provider on discharge. We will continue to follow with surgery during hospitalization. Thank you for this consultation. The impression and plan of care has been dictated by Aliyah Lopez, Nurse Practitioner as directed. Dr. Mike MD I have performed a history and examination and MDM of this patient, discussed the same with the dictator, and agree with the dictator's assessment and plan as written ,documented as a scribe. Based on total visit time, I have performed more than 50% of the visit. Objective - Vital Signs Vital signs: Vital Signs Temp 97.6 F 05/30/21 07:25 Pulse 56 L 05/30/21 07:25 Resp 18 05/30/21 07:25 BP 117/76 05/30/21 07:25 Pulse Ox 98 05/30/21 07:25 Intake & Output 05/29/21 05/30/21 05/30/21 18:59 06:59 18:59 Intake Total 118 240 Balance 118 240 Intake: Oral 118 240 Other: Voiding Method Toilet # Voids 1 2 # Bowel Movements 1 1 - Labs CBC & Chem 7: 05/29/21 09:31 05/29/21 09:31 Labs: Microbiology - Last 24 Hours (Table) 05/27/21 09:15 Blood Culture - Preliminary Blood No Growth after 48 hours 05/27/21 09:00 Blood Culture - Preliminary Blood No Growth after 48 hours
--- NOTE | 2021-06-06 18:27 | P.PN ---
Subjective Progress Note Date: 05/29/21 Principal diagnosis: Left perianal abscess Patient is a 25-year-old male presenting to the hospital with left perirectal pain swelling and redness has been diagnosed and abscess status post surgical drainage. On today's evaluation that is 05/29/2021, the patient remains to be afebrile , patient pain to the perianal area has decreased in intensity, the patient denies having any chest pain shortness of breath or cough no nausea no vomiting no abdominal pain or diarrhea Objective - Vital Signs Vital signs: Vital Signs Temp 97.5 F L 05/29/21 07:00 Pulse 65 05/29/21 07:00 Resp 16 05/29/21 07:00 BP 110/67 05/29/21 07:00 Pulse Ox 100 05/29/21 07:00 Intake & Output 05/28/21 05/29/21 05/29/21 18:59 06:59 18:59 Intake Total 1078 118 Balance 1078 118 Intake: Oral 1078 118 Other: # Voids 1 1 # Bowel Movements 1 - Exam GENERAL DESCRIPTION: Young male lying in bed in no distress RESPIRATORY SYSTEM: Unlabored breathing , decreased breath sounds at bases HEART: S1 S2 regular rate and rhythm , ABDOMEN: Soft , no tenderness EXTREMITIES: No edema feet - Labs CBC & Chem 7: 05/29/21 09:31 05/29/21 09:31 Labs: Abnormal Lab Results - Last 24 Hours (Table) 05/28/21 Range/Units 11:23 WBC 14.2 H (3.8-10.6) k/uL Neutrophils # 11.1 H (1.3-7.7) k/uL Microbiology - Last 24 Hours (Table) 05/27/21 09:15 Blood Culture - Preliminary Blood No Growth after 24 hours 05/27/21 09:00 Blood Culture - Preliminary Blood No Growth after 24 hours Assessment and Plan (1) Perineal abscess Status: Acute Code(s): L02.215 - CUTANEOUS ABSCESS OF PERINEUM SNOMED Code(s): 63206916 Plan: 1patient presented to hospital with perianal pain and swelling has been diagnosed with left perianal abscess s/p drainage in this patient who did not have any history of perianal abscess and no exposure to antibiotic more likely sensitive pathogen 2-patient is currently being treated with Unasyn 3 g every 6 hours, white count is trending down and will finish therapy with oral Augmentin Time with Patient: Less than 30
--- NOTE | 2021-06-06 18:29 | P.PN ---
Subjective Progress Note Date: 05/30/21 Principal diagnosis: Left perianal abscess Patient is a 25-year-old male presenting to the hospital with left perirectal pain swelling and redness has been diagnosed and abscess status post surgical drainage. On today's evaluation that is 05/30/2021, the patient denies any fever or any chills , patient pain to the perianal area has improved and no further drainage, the patient denies having any chest pain shortness of breath or cough no nausea no vomiting no abdominal pain or diarrhea Objective - Vital Signs Vital signs: Vital Signs Temp 97.6 F 05/30/21 07:25 Pulse 56 L 05/30/21 07:25 Resp 18 05/30/21 10:06 BP 117/76 05/30/21 07:25 Pulse Ox 98 05/30/21 07:25 Intake & Output 05/29/21 05/30/21 05/30/21 18:59 06:59 18:59 Intake Total 118 240 Balance 118 240 Intake: Oral 118 240 Other: Voiding Method Toilet Toilet # Voids 1 2 # Bowel Movements 1 1 - Exam GENERAL DESCRIPTION: Young male lying in bed in no distress RESPIRATORY SYSTEM: Unlabored breathing , decreased breath sounds at bases HEART: S1 S2 regular rate and rhythm , ABDOMEN: Soft , no tenderness EXTREMITIES: No edema feet - Labs CBC & Chem 7: 05/29/21 09:31 05/29/21 09:31 Labs: Microbiology - Last 24 Hours (Table) 05/27/21 09:15 Blood Culture - Preliminary Blood No Growth after 72 hours 05/27/21 09:00 Blood Culture - Preliminary Blood No Growth after 72 hours Assessment and Plan (1) Perineal abscess Status: Acute Code(s): L02.215 - CUTANEOUS ABSCESS OF PERINEUM SNOMED Code(s): 56644028 Plan: 1patient presented to hospital with perianal pain and swelling has been diagnosed with left perianal abscess s/p drainage in this patient who did not have any history of perianal abscess and no exposure to antibiotic more likely sensitive pathogen 2-patient has clinically improved with Unasyn prescription for Levaquin and Flagyl has been sent to the pharmacy by surgery advised to take his medication regularly if any recurrence of pain swelling or drainage or redness to let us know Time with Patient: Less than 30
--- NOTE | 2021-06-25 08:11 | P.DS ---
Providers Date of admission: 05/27/21 11:25 Expected date of discharge: 05/30/21 Attending physician: Yoandy Aldridge Consults: 05/27/21 12:12 Consult Physician Routine Consulting Provider: Radha Mckeon Consult Reason/Comments: Medical management Do you want consulting provider notified?: Yes 05/27/21 13:13 Consult Physician Routine Consulting Provider: Imtiaz Holloway Consult Reason/Comments: perianal abscess Do you want consulting provider notified?: Yes [facility] This a 25-year-old male who was admitted to the hospital with perirectal abscess. Patient underwent incision and drainage of perirectal abscess. Patient received IV antibiotics. He improved slowly over the course of his admission. Consultation with infectious disease was made. Patient was noted to have a possible small 3 mm foreign body in the rectum. Patient did deny any evidence history of foreign body of the rectum. The patient improved over saucerization. He was discharged home. Please see hospital chart for details. Patient Condition at Discharge: Good Plan - Discharge Summary New Discharge Prescriptions: New Ibuprofen [Motrin] 600 mg PO Q6HR PRN #40 tab PRN Reason: Pain Acetaminophen Tab [Tylenol] 650 mg PO Q6H #30 tab Levofloxacin [Levaquin] 500 mg PO DAILY 1 Days #10 tab metroNIDAZOLE [Flagyl] 500 mg PO TID #30 tab Docusate [Colace] 100 mg PO BID #20 capsule oxyCODONE HCL [OxyIR] 5 mg PO Q6H PRN 3 Days #10 tab PRN Reason: Pain Discharge Medication List Acetaminophen Tab [Tylenol] 650 mg PO Q6H #30 tab 05/30/21 [Rx] Docusate [Colace] 100 mg PO BID #20 capsule 05/30/21 [Rx] Ibuprofen [Motrin] 600 mg PO Q6HR PRN #40 tab 05/30/21 [Rx] Levofloxacin [Levaquin] 500 mg PO DAILY 1 Days #10 tab 05/30/21 [Rx] metroNIDAZOLE [Flagyl] 500 mg PO TID #30 tab 05/30/21 [Rx] oxyCODONE HCL [OxyIR] 5 mg PO Q6H PRN 3 Days #10 tab 05/30/21 [Rx] Follow up Appointment(s)/Referral(s): Melody Delcid MD [Primary Care Provider] - 1-2 days (Dr. Delcid no longer accepts your insurance. A new primary physician will have to be found.) Yoandy Aldridge MD [STAFF PHYSICIAN] - 06/07/21 1:15 pm Patient Instructions/Handouts: Abscess Incision and Drainage (DC) Activity/Diet/Wound Care/Special Instructions: The patient to soak in warm soapy water daily Discharge Disposition: HOME SELF-CARE
== END 2021-05-30 12:31 | disposition home or self-care (01) ==
LOC: EC 08:42 → 6NMEDSUR 11:25
PROVIDERS: ADMIT Surgery; ATTEND Surgery
DX: K61.0 Anal abscess (principal); K61.1 Rectal abscess; L02.215 Cutaneous abscess of perineum; F17.200 Nicotine dependence, unspecified, uncomplicated; R19.7 Diarrhea, unspecified; E87.2 Acidosis; Z87.442 Personal history of urinary calculi; E66.9 Obesity, unspecified; Z68.38 Body mass index [BMI] 38.0-38.9, adult; Z71.9 Counseling, unspecified
CPT/HCPCS: 96376 ×3; 96361 ×3; 96365; 96366 ×4; 96367; 96375; 99284; 46050; 36415; 80053; 80048; 85025 ×3; 87040; 74177; G0378 ×4; J0295 ×4; J1885; J2704; J1170 ×3; Q9967; 96374

== ENCOUNTER 2021-08-10 06:30 | Day surgery (SDC) | payer OTHER ==
[2021-08-09 09:12] VITALS: BMI 34.8
[~2021-08-10 06:30] MED LIST: ACETAMINOPHEN TAB 500 MG TAB PO PRN; DEXAMETHASONE SOD PHOSPHATE 4 MG/ML 1 ML VIAL IV ONE; HEPARIN SODIUM,PORCINE/PF 5,000 UNIT/0.5 ML SYRINGE SQ PRN; HYDROmorphone 0.5 MG/0.5 ML SYRINGE IVP PRN; LACTATED RINGERS 1,000 ML IV SCH; LIDOCAINE 1% (10MG/ML) FOR IV START INTRADERMA PRN; MIDAZOLAM 2 MG/2 ML VIAL IV PRN; ONDANSETRON 4 MG/2 ML VIAL IVP ONE
[2021-08-10] MEDS ORDERED: SUCCINYLCHOLINE CHLORIDE VIAL 200 MG/10 ML VIAL IV ONE (08:27)
[2021-08-10] MEDS ORDERED: HYDROmorphone (PF) 1 MG/ML ONE (08:27)
[2021-08-10] MEDS ORDERED: PROPOFOL 10 MG/ML 20 ML VIAL IV ONE (08:27)
[2021-08-10] MEDS ORDERED: fentaNYL (PF) 50 MCG/ML 2 ML AMP ONE (08:27)
[2021-08-10] MEDS ORDERED: MIDAZOLAM 2 MG/2 ML VIAL ONE (08:27)
[2021-08-10] MEDS ORDERED: ROCURONIUM 10 MG/ML (5 ML VIAL) IV ONE (08:27)
[2021-08-10] MEDS ORDERED: LIDOCAINE 2% INJ 20 MG/ML (2 ML VIAL) ONE (08:27)
[2021-08-10] MEDS ORDERED: NEOSTIGMINE 1 MG/ML 10 ML VIAL ONE (08:27)
[2021-08-10] MEDS ORDERED: GLYCOPYRROLATE 0.2 MG/ML 2 ML VIAL ONE (08:27)
[2021-08-10] MEDS ORDERED: BUPIVACAIN-EPI 0.25%-1:200,000 30 ML VIAL SQ ONE (08:55)
--- NOTE | 2021-08-10 09:24 | P.GSHP ---
History of Present Illness H&P Date: 08/10/21 Chief Complaint: Right upper quadrant pain Is a 25-year-old male who presents today for laparoscopic cholecystectomy. Patient complains right quadrant pain. He's had evidence of chronic cholecystitis and cholelithiasis. Past Medical History Past Medical History: GERD/Reflux Additional Past Medical History / Comment(s): kidney stones, migraines, gallstones, History of Any Multi-Drug Resistant Organisms: None Reported Past Surgical History: No Surgical Hx Reported Additional Past Surgical History / Comment(s): I&D Past Anesthesia/Blood Transfusion Reactions: No Reported Reaction Smoking Status: Current every day smoker - Past Family History Father Family Medical History: Deep Vein Thrombosis (DVT) Medications and Allergies Home Medications Medication Instructions Recorded Confirmed Type No Known Home Medications 08/09/21 08/10/21 History Allergies Allergy/AdvReac Type Severity Reaction Status Date / Time No Known Allergies Allergy Verified 08/10/21 06:59 Surgical - Exam Vital Signs Temp Pulse Resp BP Pulse Ox 97.8 F 92 16 128/77 97 08/10/21 07:05 08/10/21 07:05 08/10/21 07:05 08/10/21 07:05 08/10/21 07:05 - General well developed, well nourished, no distress - Eyes PERRL, normal ocular movement - ENT normal pinna - Neck no masses - Respiratory normal expansion - Cardiovascular Rhythm: regular - Abdomen Abdomen: soft, non tender Assessment and Plan Assessment: Right quadrant pain. Chronic cholecystitis. We'll perform laparoscopic cholecystectomy.
--- NOTE | 2021-08-10 09:25 | P.OP ---
Date of Procedure: 08/10/21 Preoperative Diagnosis: Cholecystitis Postoperative Diagnosis: Cholecystitis Procedure(s) Performed: Laparoscopic cholecystectomy Anesthesia: MAISHA Surgeon: Yoandy Aldridge Estimated Blood Loss (ml): 5 Pathology: other (Gallbladder) Condition: stable Disposition: PACU Description of Procedure: The patient was placed on the operating table. The patient received a general endotracheal tube anesthesia. The patients abdomen was prepped and draped in the usual sterile fashion. Through an infraumbilical stab incision, the fascia of the anterior abdominal wall was grasped with a pair of Kochers and then the Veress needle was placed in the peritoneal cavity. Position of the Veress needle was confirmed with positive drop test. The abdomen was then insufflated. After adequate insufflation, the 10 mm trocar was placed in the peritoneal cavity. Following this the laparoscope was placed in the peritoneal cavity. The patient was placed in the head-up, right side up position and then a 5 mm trocar was placed in the right lateral and right subcostal position under direct visualization. A 8 mm trocar was placed in the epigastric position. The gallbladder was grasped in the fundus and infundibulum. Traction on the gallbladder was placed in the lateral and the cephalad positions. The triangle of Calot was visualized.. The cystic duct was bluntly dissected until the union of the cystic duct and common bile duct was seen. A critical view of safety was achieved. The cystic duct was then divided and sealed with the Harmonic scissors. A PDS Endoloop was then placed throughout the cystic duct stump. The cystic artery divided and sealed with the Harmonic scissors. The gallbladder was then removed from the liver bed using Harmonic scissors. The gallbladder was then extracted through the epigastric port site. Operative field was checked for any bleeding spots and Harmonic scissors was used to coagulate the liver bed. The abdomen was irrigated. The trocars were removed. The skin was closed using interrupted 3-0 Vicryl suture. Dermabond dressing were applied. The patient tolerated the procedure well.
[2021-08-10 09:37] VITALS: TEMP 96.8
[2021-08-10 10:33] VITALS: RESP 16
[2021-08-10] MEDS ORDERED: SIMETHICONE 80 MG CHEWABLE PO ONE (10:43)
[2021-08-10 11:35] VITALS: BP 118/81; PULSE 96
== END 2021-08-10 12:05 | disposition home or self-care (01) ==
LOC: OR 06:30
PROVIDERS: ATTEND Surgery
DX: K80.10 Calculus of gallbladder with chronic cholecystitis without obstruction (principal); K21.9 Gastro-esophageal reflux disease without esophagitis; Z87.442 Personal history of urinary calculi; G43.909 Migraine, unspecified, not intractable, without status migrainosus; F17.210 Nicotine dependence, cigarettes, uncomplicated; Z82.49 Family history of ischemic heart disease and other diseases of the circulatory system
CPT/HCPCS: 88304; 47562; J2250; J0330; J1100; J2710; J0690; J2405; J3010; J1170 ×2; J2704; J1644; J2001

== ENCOUNTER → 2021-10-22 | Outpatient (CLI) | payer OTHER ==
[2021-10-22 20:02] LABS: Chol/HDL Ratio 5.79 Ratio; LDL Cholesterol,Calculated 139.8 mg/dL (0.0-131.0)
== END | disposition home or self-care (01) ==
LOC: LABWHC1 13:00
PROVIDERS: ATTEND Internal Medicine Cardiovascular Disease
DX: E78.2 Mixed hyperlipidemia (principal); E11.8 Type 2 diabetes mellitus with unspecified complications
CPT/HCPCS: 36415; 80061; 83036

== ENCOUNTER 2021-11-24 06:37 | Emergency (ER) | payer OTHER ==
[2021-11-24 06:46] VITALS: TEMP 97.7
[2021-11-24] MEDS ORDERED: PENICILLIN V POTASSIUM 250 MG TAB PO STA (06:46)
[2021-11-24] MEDS ORDERED: HYDROcodone/APAP 5-325MG 1 EACH TAB PO STA (06:46)
[2021-11-24] MEDS ORDERED: ACET/COD 300 MG/30 MG STARTER PACK 6 TAB BTL PO STA (06:47)
[2021-11-24] MEDS ORDERED: IBUPROFEN 600 MG STARTER PACK 4 TAB BTL PO STA (06:47)
[2021-11-24] MEDS ORDERED: BENZOCAINE 20 % GEL 11.9 GM TUBE MM ONE (06:49)
--- NOTE | 2021-11-24 06:50 | ED ---
ENT HPI - General Chief complaint: Dental/Oral Stated complaint: Dental/Jaw Pain Time Seen by Provider: 11/24/21 06:39 Source: patient, RN notes reviewed Limitations: no limitations - History of Present Illness Initial comments: This is a 26-year-old male who presents to the emergency department for dental pain. States that this has been present for the last 3 days, however this morning the pain became unbearable. he has a chipped tooth on the right side of the bottom jaw. He is scheduled to see his dentist in 4 days. Patient is very tearful in the examination room. States that talking makes it worse and he feels like his face is swollen. He has tried OTC topical benzocaine with no relief. Denies any fevers or chills. Denies any fevers, chills, sore throat, cough, dyspnea, chest pain, palpitations, abdominal pain, nausea, vomiting, diarrhea, back pain, or headaches. MD complaint: tooth pain Onset/Timin -: days(s) Context- Dental: history of dental caries, poor dental care - Related Data Previous Rx's Medication Instructions Recorded Acetaminophen Tab [Tylenol] 650 mg PO Q6H #30 tab 08/10/21 Docusate [Colace] 100 mg PO BID #20 capsule 08/10/21 Ibuprofen [Motrin] 600 mg PO Q6HR PRN #40 tab 08/10/21 oxyCODONE HCL [OxyIR] 5 mg PO Q6H PRN 3 Days #10 tab 08/10/21 Ketorolac [Toradol] 10 mg PO Q6HR PRN #12 tab 11/24/21 Penicillin V Potassium [Pen Vee K] 500 mg PO Q6H 7 Days #28 tablet 11/24/21 Allergies Allergy/AdvReac Type Severity Reaction Status Date / Time No Known Allergies Allergy Verified 11/24/21 06:42 Review of Systems ROS Statement: Those systems with pertinent positive or pertinent negative responses have been documented in the HPI. ROS Other: All systems not noted in ROS Statement are negative. Past Medical History Past Medical History: GERD/Reflux Additional Past Medical History / Comment(s): kidney stones, migraines, gallstones, History of Any Multi-Drug Resistant Organisms: None Reported Past Surgical History: No Surgical Hx Reported Additional Past Surgical History / Comment(s): I&D Past Anesthesia/Blood Transfusion Reactions: No Reported Reaction Smoking Status: Current every day smoker - Past Family History Father Family Medical History: Deep Vein Thrombosis (DVT) General Exam General appearance: alert, in distress Head exam: Present: atraumatic, normocephalic, normal inspection ENT exam: Present: other (Decay and obvious chipping of tooth #32. Multiple dental caries. Mild fullness to the right cheek. There is no submandibular or submental swelling. No elevation of the tongue.) Respiratory exam: Present: normal lung sounds bilaterally. Absent: respiratory distress, wheezes, rales, rhonchi, stridor Cardiovascular Exam: Present: regular rate, normal rhythm, normal heart sounds. Absent: systolic murmur, diastolic murmur, rubs, gallop, clicks Neurological exam: Present: alert, oriented X3, CN II-XII intact Skin exam: Present: warm, dry, intact, normal color. Absent: rash Course Vital Signs 11/24/21 06:43 Temperature 97.7 F Pulse Rate 77 Respiratory 22 Rate Blood Pressure 170/94 O2 Sat by Pulse 98 Oximetry Medical Decision Making - Medical Decision Making This is a 26-year-old male who presents to the emergency department for dental pain. With the fullness of the cheek and worsening pain, patient has likely developed a dental abscess. I am not able to palpate an area that could be easily drained in the emergency department. The patient has no signs of Michele's angina on physical examination. Prescription for Pen-Vee K provided. The first dose was administered in the emergency department. Prescription for Toradol was provided to be taken up to every 6 hours for pain relief. Instructed him to alternate this with Tylenol and avoid taking it with ibuprofen or other [id number] anti-inflammatories. He will follow up with his dentist as scheduled in 4 days. Also advised he apply ice to the right cheek to help with pain and inflammation. Return precautions reviewed in depth, the patient is instructed to return to the emergency department with any new, worsening, or concerning symptoms. Patient verbalized understanding. This case was discussed in detail with the attending ED physician. Presentation, findings, and treatment plan discussed in detail as well. Disposition Clinical Impression: Dental abscess Disposition: HOME SELF-CARE Instructions (If sedation given, give patient instructions): Dental Abscess (ED), Toothache (ED) Additional Instructions: Return to the emergency department with any new, worsening, or concerning symptoms. Take the antibiotic as prescribed for 7 days. The Toradol can be taken up to every 6 hours and you should alternate this with Tylenol. Take either the Toradol or Ibuprofen, do not take them together. You can also use xrco-nhr-bmwnkee benzocaine and apply ice to the right cheek. Follow up with your dentist as scheduled. Prescriptions: Penicillin V Potassium [Pen Vee K] 500 mg PO Q6H 7 Days #28 tablet Ketorolac [Toradol] 10 mg PO Q6HR PRN #12 tab PRN Reason: Pain Is patient prescribed a controlled substance at d/c from ED?: No Referrals: José Miguel Gonsalves MD [Primary Care Provider] - 1-2 days
[2021-11-24] MEDS ORDERED: KETOROLAC 15 MG/ML 1 ML VIAL IM STA (07:19)
[2021-11-24] MEDS ORDERED: MORPHINE SULFATE 2 MG/ML SYRINGE IM STA (07:50)
[2021-11-24 08:29] VITALS: BP 164/88; PULSE 84; RESP 20
== END 2021-11-24 08:41 | disposition home or self-care (01) ==
LOC: EC 06:37
DX: K04.7 Periapical abscess without sinus (principal); F17.200 Nicotine dependence, unspecified, uncomplicated
CPT/HCPCS: 99282; 96372; J2270; J1885

== ENCOUNTER 2022-06-14 21:13 | Emergency (ER) | payer OTHER ==
[2022-06-14 21:17] VITALS: BP 150/88; PULSE 106; RESP 20; TEMP 97.6
[2022-06-14] MEDS ORDERED: MORPHINE SULFATE 4 MG/ML SYRINGE IVP STA (23:28)
[2022-06-15] LABS: Basophils % (A) 0 %; Eosinophils # (A) 0.2 k/uL (0-0.7); Eosinophils % (A) 2 %; HCT 43.3 % (39.0-53.0); HGB 14.7 gm/dL (13.0-17.5); Lymphocytes # (A) 2.9 k/uL (1.0-4.8); Lymphocytes % (A) 30 %; MCH 30.1 pg (25.0-35.0); MCHC 33.8 g/dL (31.0-37.0); MCV 89.1 fL (80.0-100.0); Mean Platelet Volume 8.3; Monocytes # (A) 0.6 k/uL (0-1.0); Monocytes % (A) 6 %; Neutrophils # (A) 5.9 k/uL (1.3-7.7); Neutrophils % (A) 60 %; Platelet Count 253 k/uL (150-450); RBC 4.87 m/uL (4.30-5.90); RDW 12.4 % (11.5-15.5); WBC 9.9 k/uL (3.8-10.6)
--- NOTE | 2022-06-15 00:02 | ED ---
Skin/Abscess/FB HPI - General Chief complaint: Skin/Abscess/Foreign Body Stated complaint: Infection Time Seen by Provider: 06/14/22 23:11 Source: patient Mode of arrival: ambulatory Limitations: no limitations - History of Present Illness Initial comments: Patient is a 26-year-old male presenting with chief complaint of pain and swelling to the left buttock. Symptoms have been ongoing for the last 3 days. Patient states he started having some drainage today. No fevers or chills. No nausea or vomiting. No abdominal pain. Patient does have history of perineal abscess. - Related Data Previous Rx's Medication Instructions Recorded Acetaminophen Tab [Tylenol] 650 mg PO Q6H #30 tab 08/10/21 Docusate [Colace] 100 mg PO BID #20 capsule 08/10/21 Ibuprofen [Motrin] 600 mg PO Q6HR PRN #40 tab 08/10/21 oxyCODONE HCL [OxyIR] 5 mg PO Q6H PRN 3 Days #10 tab 08/10/21 Ketorolac [Toradol] 10 mg PO Q6HR PRN #12 tab 11/24/21 Penicillin V Potassium [Pen Vee K] 500 mg PO Q6H 7 Days #28 tablet 11/24/21 Cephalexin [Keflex] 500 mg PO Q6HR 7 Days #28 cap 06/15/22 Sulfamethox-Tmp 800-160Mg [Bactrim 1 tab PO Q12HR 7 Days #14 tab 06/15/22 DS 800-160 mg] Allergies Allergy/AdvReac Type Severity Reaction Status Date / Time No Known Allergies Allergy Verified 06/14/22 21:17 Review of Systems ROS Statement: Those systems with pertinent positive or pertinent negative responses have been documented in the HPI. ROS Other: All systems not noted in ROS Statement are negative. Past Medical History Past Medical History: GERD/Reflux Additional Past Medical History / Comment(s): kidney stones, migraines, galls tones, History of Any Multi-Drug Resistant Organisms: None Reported Past Surgical History: No Surgical Hx Reported Additional Past Surgical History / Comment(s): I&D Past Anesthesia/Blood Transfusion Reactions: No Reported Reaction Past Psychological History: Anxiety Smoking Status: Current every day smoker Past Alcohol Use History: Rare Past Drug Use History: Marijuana - Past Family History Father Family Medical History: Deep Vein Thrombosis (DVT) General Exam Limitations: no limitations General appearance: alert, in no apparent distress Head exam: Present: atraumatic, normocephalic, normal inspection Eye exam: Present: normal appearance, EOMI. Absent: periorbital swelling Neck exam: Present: normal inspection, full ROM Respiratory exam: Present: normal lung sounds bilaterally. Absent: respiratory distress, wheezes, rales, rhonchi, stridor Cardiovascular Exam: Present: regular rate, normal rhythm, normal heart sounds. Absent: systolic murmur, diastolic murmur, rubs, gallop, clicks exam: Present: normal inspection Neurological exam: Present: alert, oriented X3, CN II-XII intact Psychiatric exam: Present: normal affect, normal mood Expanded Type of lesion: Present: abscess (Abscess to the left perineum.) Course Vital Signs 06/14/22 21:16 Temperature 97.6 F Pulse Rate 106 H Respiratory 20 Rate Blood Pressure 150/88 O2 Sat by Pulse 99 Oximetry Medical Decision Making - Medical Decision Making Was pt. sent in by a medical professional or institution (, PA, [employer] DEVELOPER, urgent care, hospital, or care home...) When possible be specific @ -No Did you speak to anyone other than the patient for history (EMS, parent, family, police, friend...)? What history was obtained from this source @ -No Did you review nursing and triage notes (agree or disagree)? Why? @ -I reviewed and agree with nursing and triage notes Were old charts reviewed (outside hosp., previous admission, EMS record, old EKG, old radiological studies, urgent care reports/EKG's, care home records)? Report findings @ -No old charts were reviewed Differential Diagnosis (chest pain, altered mental status, abdominal pain women, abdominal pain men, vaginal bleeding, weakness, fever, dyspnea, syncope, headache, dizziness, GI bleed, back pain, seizure, CVA, palpatations, mental health, musculoskeletal)? @ -Differential includes cellulitis, abscess, perirectal abscess, this is not an all inclusive last EKG interpreted by me (3pts min.). @ -As above X-rays interpreted by me (1pt min.). @ -None done CT interpreted by me (1pt min.). @ -CT shows no evidence for perianal abscess. There is no organizing fluid collection or significant fat stranding changes. There is skin thickening in the left gluteal cleft/perineum. U/S interpreted by me (1pt. min.). @ -None done What testing was considered but not performed or refused? (CT, X-rays, U/S, labs)? Why? @ -None What meds were considered but not given or refused? Why? @ -None Did you discuss the management of the patient with other professionals (dameon bhatt i.e. , PA, [employer] DEVELOPER, lab, RT, psych nurse, sexual assault social worker, animal researcher, teacher, banking services officer, hospice case manager)? Give summary @ -No Was smoking cessation discussed for >3mins.? @ -No Was critical care preformed (if so, how long)? @ -No Were there social determinants of health that impacted care today? How? (Homelessness, low income, unemployed, alcoholism, drug addiction, transportatio n, low edu. Level, literacy, decrease access to med. care, care home, rehab)? @ -No Was there de-escalation of care discussed even if they declined (Discuss DNR or withdrawal of care, Hospice)? DNR status @ -No What co-morbidities impacted this encounter? (DM, HTN, Smoking, COPD, CAD, Cancer, CVA, ARF, Chemo, Hep., AIDS, mental health diagnosis, sleep apnea, morbid obesity)? @ -None Was patient admitted / discharged? Hospital course, mention meds given and route, prescriptions, significant lab abnormalities, going to OR and other pertinent info. @ -Discharged. Patient's 26-year-old male presenting with chief complaint of redness, swelling, drainage to the left gluteal cleft. No fevers or chills. On inspection this does not approach the anus. CBC and CMP are essentially unremarkable. CT shows no evidence of. No abscess. No evidence of subcutaneous gas. Patient will be treated with Bactrim and Keflex. Educated on wound care. Follow-up with PCP. Report back to ER with any new or worsening symptoms. Discussed return parameters and answered all questions. Patient conveyed verbal understanding and agreed to the plan. I discussed this case in detail with my attending Dr. Reyes Undiagnosed new problem with uncertain prognosis? @ -No Drug Therapy requiring intensive monitoring for toxicity (Heparin, Nitro, Insulin, Cardizem)? @ -No Were any procedures done? @ -No Diagnosis/symptom? @ -Abscess Acute, or Chronic, or Acute on Chronic? @ -Acute Uncomplicated (without systemic symptoms) or Complicated (systemic symptoms)? @ -Uncomplicated Side effects of treatment? @ -No Exacerbation, Progression, or Severe Exacerbation? @ -No Poses a threat to life or bodily function? How? (Chest pain, [place], ND, pneumonia, PE, COPD, DKA, ARF, appy, cholecystitis, CVA, Diverticulitis, Homicidal, Suicidal, threat to staff... and all critical care pts) @ -No - Lab Data Result diagrams: 06/14/22 23:43 06/14/22 23:43 Lab Results 06/14/22 06/14/22 Range/Units 23:43 23:43 WBC 9.9 (3.8-10.6) k/uL RBC 4.87 (4.30-5.90) m/uL Hgb 14.7 (13.0-17.5) gm/dL Hct 43.3 (39.0-53.0) % MCV 89.1 (80.0-100.0) fL MCH 30.1 (25.0-35.0) pg MCHC 33.8 (31.0-37.0) g/dL RDW 12.4 (11.5-15.5) % Plt Count 253 (150-450) k/uL MPV 8.3 Neutrophils % 60 % Lymphocytes % 30 % Monocytes % 6 % Eosinophils % 2 % Basophils % 0 % Neutrophils # 5.9 (1.3-7.7) k/uL Lymphocytes # 2.9 (1.0-4.8) k/uL Monocytes # 0.6 (0-1.0) k/uL Eosinophils # 0.2 (0-0.7) k/uL Basophils # 0.0 (0-0.2) k/uL Sodium 136 L (137-145) mmol/L Potassium 4.2 (3.5-5.1) mmol/L Chloride 105 (98-107) mmol/L Carbon Dioxide 24 (22-30) mmol/L Anion Gap 7 mmol/L BUN 10 (9-20) mg/dL Creatinine 0.77 (0.66-1.25) mg/dL Est GFR (CKD-EPI)AfAm >90 (>60 ml/min/1.73 sqM) Est GFR (CKD-EPI)NonAf >90 (>60 ml/min/1.73 sqM) Glucose 89 (74-99) mg/dL Calcium 8.6 (8.4-10.2) mg/dL Total Bilirubin 0.6 (0.2-1.3) mg/dL AST 46 (17-59) U/L ALT 28 (4-49) U/L Alkaline Phosphatase 53 (38-126) U/L Total Protein 7.2 (6.3-8.2) g/dL Albumin 4.1 (3.5-5.0) g/dL Disposition Clinical Impression: Abscess Disposition: HOME SELF-CARE Condition: Good Instructions (If sedation given, give patient instructions): Abscess (ED) Additional Instructions: Follow-up with PCP. Report back to ER with any new or worsening symptoms. Take Motrin and Tylenol as needed for pain control. Take medication as prescribed. Use warm compresses to help with expression of pus and pain. Worsening symptoms include but are not limited to increasing pain, redness, swelling, fever, chills, nausea, vomiting, abdominal pain. Prescriptions: Sulfamethox-Tmp 800-160Mg [Bactrim DS 800-160 mg] 1 tab PO Q12HR 7 Days #14 tab Cephalexin [Keflex] 500 mg PO Q6HR 7 Days #28 cap Is patient prescribed a controlled substance at d/c from ED?: No Referrals: José Miguel Gonsalves MD [Primary Care Provider] - 1-2 days Time of Disposition: 00:49
--- NOTE | 2022-06-15 00:08 | CT ---
EXAMINATION TYPE: CT pelvis w con CT DLP: 2469.9 mGycm, Automated exposure control for dose reduction was used. DATE OF EXAM: 06/14/2022 11:59 PM COMPARISON: CT abdomen pelvis most recent from 05/28/2021. CLINICAL INDICATION:Male, 26 years old with history of perineal abscess; TECHNIQUE: Axial CT of the abdomen. Sagittal and coronal reformats [facility] Contrast used: 100 cc of Isovue-300 Oral contrast used: None FINDINGS: BLADDER: Unremarkable REPRODUCTIVE: Unremarkable. ABDOMEN & PELVIS STOMACH AND BOWEL: No evidence of bowel obstruction. Appendix is normal. PERITONEUM/RETROPERITONEUM: No evidence of pneumoperitoneum or free fluid. VASCULATURE: No evidence of aortic aneurysm. MUSCULOSKELETAL: No acute osseous abnormalities LYMPH NODES: No gross evidence for lymphadenopathy. SOFT TISSUE/ABDOMINAL WALL: No evidence for perianal abscess. The perineum without organizing fluid c ollection or significant fat stranding changes. There is mild skin thickening measuring up to 9 mm wi thin the left gluteal cleft in the area of prior phlegmonous change/gas seen on 05/28/2021. Fat-contain ing umbilical hernia. IMPRESSION: No evidence for perianal abscess. Healing changes since prior on 05/28/2021. The perineum is without or ganizing fluid collection or significant fat stranding changes. There is skin thickening of the left gluteal cleft/perineum.
[2022-06-15 00:21] LABS: ALT 28 U/L (4-49); AST 46 U/L (17-59); African American GFR (CKD) >90 (>60 ml/min/1.73 sqM); Albumin 4.1 g/dL (3.5-5.0); Alkaline Phosphatase 53 U/L (38-126); Anion Gap 7 mmol/L; Blood Urea Nitrogen 10 mg/dL (9-20); Calcium 8.6 mg/dL (8.4-10.2); Carbon Dioxide 24 mmol/L (22-30); Chloride 105 mmol/L (98-107); Glucose 89 mg/dL (74-99); Non-African American GFR(CKD) >90 (>60 ml/min/1.73 sqM); Sodium 136 mmol/L (137-145); Total Bilirubin 0.6 mg/dL (0.2-1.3); Total Protein 7.2 g/dL (6.3-8.2)
[2022-06-15 00:38] LABS: Potassium 4.2 mmol/L (3.5-5.1)
[2022-06-15] MEDS ORDERED: SULFAMETHOX-TMP 800-160MG 1 EACH TAB PO STA (00:43)
[2022-06-15] MEDS ORDERED: CEPHALEXIN 500 MG CAP PO STA (00:43)
== END 2022-06-15 01:17 | disposition home or self-care (01) ==
LOC: EC 21:13
DX: L02.31 Cutaneous abscess of buttock (principal); F41.9 Anxiety disorder, unspecified; F17.200 Nicotine dependence, unspecified, uncomplicated; F12.90 Cannabis use, unspecified, uncomplicated
CPT/HCPCS: 36415; 80053; 85025; 72193; 99283; 96374; J2270; Q9967

== ENCOUNTER 2023-06-19 23:08 | Emergency (ER) | payer OTHER ==
--- NOTE | 2023-06-19 23:47 | ED ---
ENT HPI - General Chief complaint: Dental/Oral Stated complaint: Abcess in mouth Time Seen by Provider: 06/19/23 23:44 Source: patient Mode of arrival: ambulatory Limitations: no limitations - History of Present Illness Initial comments: 27-year-old male presenting with chief complaint of dental abscess. Patient has had pain to the right lower mandible for about 3 to 4 days. Today the pain was increasing in intensity which brought him to the ER. He has history of dental abscesses. Does not currently follow with a dentist. Has been taking Motrin an d Tylenol for pain. No difficulty breathing or swallowing. No fever chills or neck pain. No drooling or muffled voice. - Related Data Previous Rx's Medication Instructions Recorded Acetaminophen Tab [Tylenol] 650 mg PO Q6H #30 tab 08/10/21 Docusate [Colace] 100 mg PO BID #20 capsule 08/10/21 Ibuprofen [Motrin] 600 mg PO Q6HR PRN #40 tab 08/10/21 oxyCODONE HCL [OxyIR] 5 mg PO Q6H PRN 3 Days #10 tab 08/10/21 Ketorolac [Toradol] 10 mg PO Q6HR PRN #12 tab 11/24/21 Penicillin V Potassium [Pen Vee K] 500 mg PO Q6H 7 Days #28 tablet 11/24/21 Cephalexin [Keflex] 500 mg PO Q6HR 7 Days #28 cap 06/15/22 Sulfamethox-Tmp 800-160Mg [Bactrim 1 tab PO Q12HR 7 Days #14 tab 06/15/22 DS 800-160 mg] Amoxic-Pot Clav 875-125Mg 1 tab PO Q12HR 7 Days #14 tab 06/20/23 [Augmentin 875-125] Allergies Allergy/AdvReac Type Severity Reaction Status Date / Time No Known Allergies Allergy Verified 06/19/23 23:43 Review of Systems ROS Statement: Those systems with pertinent positive or pertinent negative responses have been documented in the HPI. ROS Other: All systems not noted in ROS Statement are negative. Past Medical History Past Medical History: GERD/Reflux Additional Past Medical History / Comment(s): kidney stones, migraines, gallstones, History of Any Multi-Drug Resistant Organisms: None Reported Past Surgical History: No Surgical Hx Reported Additional Past Surgical History / Comment(s): I&D Past Anesthesia/Blood Transfusion Reactions: No Reported Reaction Past Psychological History: Anxiety Smoking Status: Current every day smoker Past Alcohol Use History: Rare Past Drug Use History: Marijuana - Past Family History Father Family Medical History: Deep Vein Thrombosis (DVT) General Exam Limitations: no limitations General appearance: alert, in no apparent distress Head exam: Present: atraumatic, normocephalic Eye exam: Present: normal appearance, EOMI Expanded Mouth exam: Present: tongue normal. Absent: drooling, trismus, muffled voice Teeth exam: Present: gingival enlargement (Posterior portion of the right lower gumline) Throat exam: normal inspection Neck exam: Present: normal inspection. Absent: meningismus Respiratory exam: Absent: respiratory distress Cardiovascular Exam: Present: regular rate Neurological exam: Present: alert, oriented X3 Psychiatric exam: Present: normal affect, normal mood Skin exam: Present: warm, dry Course Vital Signs 06/19/23 23:41 Temperature 97.6 F Pulse Rate 91 Respiratory 18 Rate Blood Pressure 129/86 O2 Sat by Pulse 99 Oximetry Medical Decision Making - Medical Decision Making Was pt. sent in by a medical professional or institution (Dr. PA, CHEMICAL LABORATORY TESTER, urgent care, hospital, or senior living...) When possible be specific @ -No Did you speak to anyone other than the patient for history (EMS, parent, family, police, friend...)? What history was obtained from this source @ -No Did you review nursing and triage notes (agree or disagree)? Why? @ -I reviewed and agree with nursing and triage notes Were old charts reviewed (outside hosp., previous admission, EMS record, old EKG, old radiological studies, urgent care reports/EKG's, senior living records)? Report findings @ -No old charts were reviewed Differential Diagnosis (chest pain, altered mental status, abdominal pain women, abdominal pain men, vaginal bleeding, weakness, fever, dyspnea, syncope, headache, dizziness, GI bleed, back pain, seizure, CVA, palpatations, mental health, musculoskeletal)? @ -Differential includes toothache, dental caries, dental abscess, Michele's angina, this is not an all-inclusive list EKG interpreted by me (3pts min.). @ -As above X-rays interpreted by me (1pt min.). @ -None done CT interpreted by me (1pt min.). @ -None done U/S interpreted by me (1pt. min.). @ -None done What testing was considered but not performed or refused? (CT, X-rays, U/S, labs)? Why? @ -None What meds were considered but not given or refused? Why? @ -None Did you discuss the management of the patient with other professionals (professionals i.e. Dr., PA, CHEMICAL LABORATORY TESTER, lab, RT, psych nurse, manager social services, dining room attendant, teacher, co founder and chief strategy officer, case repairer)? Give summary @ -No Was smoking cessation discussed for >3mins.? @ -No Was critical care preformed (if so, how long)? @ -No Were there social determinants of health that impacted care today? How? (Homelessness, low income, unemployed, alcoholism, drug addiction, transportation, low edu. Level, literacy, decrease access to med. care, nursing home, rehab)? @ -No Was there de-escalation of care discussed even if they declined (Discuss DNR or withdrawal of care, Hospice)? DNR status @ -No What co-morbidities impacted this encounter? (DM, HTN, Smoking, COPD, CAD, Cancer, CVA, ARF, Chemo, Hep., AIDS, mental health diagnosis, sleep apnea, morbid obesity)? @ -None Was patient admitted / discharged? Hospital course, mention meds given and route, prescriptions, significant lab abnormalities, going to OR and other pertinent info. @ -27-year-old male presenting with chief complaint of dental pain and swelling. On exam there is an area of enlarged gum line. I attempted to needle aspirate this area, only blood was found on return. Patient is having no difficulty breathing or swallowing, there is no brawny induration. No muffled voice or drooling. He will be started on Augmentin. He is provided with dental clinic follow-up. Discharged home. Follow-up with PCP. Report back to ER with any new or worsening symptoms. Discussed return parameters and answered all questions. Patient conveyed verbal understanding and agreed to the plan. I discussed this case in detail with my attending Dr. Jacobs Undiagnosed new problem with uncertain prognosis? @ -No Drug Therapy requiring intensive monitoring for toxicity (Heparin, Nitro, Insulin, Cardizem)? @ -No Were any procedures done? @ -No Diagnosis/symptom? @ -Dental abscess Acute, or Chronic, or Acute on Chronic? @ -Acute Uncomplicated (without systemic symptoms) or Complicated (systemic symptoms)? @ -Uncomplicated Side effects of treatment? @ -No Exacerbation, Progression, or Severe Exacerbation? @ -No Poses a threat to life or bodily function? How? (Chest pain, [place], [place], pneumonia, PE, COPD, DKA, ARF, appy, cholecystitis, CVA, Diverticulitis, Homicidal, Suicid al, threat to staff... and all critical care pts) @ -No Disposition Clinical Impression: Dental abscess Disposition: HOME SELF-CARE Condition: Good Instructions (If sedation given, give patient instructions): Dental Abscess (ED) Additional Instructions: Please follow up with the [facility] dental clinic. [facility] [place] [address]. Phone number for new patients or [phone] for existing patients. Prescriptions: Amoxic-Pot Clav 875-125Mg [Augmentin 875-125] 1 tab PO Q12HR 7 Days #14 tab Is patient prescribed a controlled substance at d/c from ED?: No Referrals: José Miguel Gonsalves MD [Primary Care Provider] - 1-2 days Time of Disposition: 00:07
[2023-06-19 23:59] VITALS: BP 129/86; PULSE 91; RESP 18; TEMP 97.6
[2023-06-20] MEDS: AMOXIC-POT CLAV 875MG STARTER PACK 2 TAB BTL PO STA (01:09)
[2023-06-20] MEDS: KETOROLAC 15 MG/ML 1 ML VIAL IM STA (01:09)
[2023-06-20] MEDS: ACET/COD 300 MG/30 MG STARTER PACK 6 TAB BTL PO STA (01:09)
== END 2023-06-20 01:13 | disposition home or self-care (01) ==
LOC: EC 23:08
DX: K04.7 Periapical abscess without sinus (principal); F17.200 Nicotine dependence, unspecified, uncomplicated; F12.90 Cannabis use, unspecified, uncomplicated
CPT/HCPCS: 99282; 96372; J1885

== ENCOUNTER 2023-07-03 21:27 | Emergency (ER) | payer OTHER ==
[2023-07-03 22:07] VITALS: BP 156/92; PULSE 61; RESP 16; TEMP 97.9
--- NOTE | 2023-07-03 22:14 | ED ---
ENT HPI - General Chief complaint: Dental/Oral Stated complaint: tooth pain Time Seen by Provider: 07/03/23 21:36 Source: patient, RN notes reviewed, old records reviewed Mode of arrival: ambulatory Limitations: no limitations - History of Present Illness Initial comments: This is a 27-year-old male to the ER today. Patient [place] for evaluation regards to severe dental pain. Patient has history of dental disease and coming in for possibility of infection. MD complaint: tooth pain -: days(s) Location: tooth # Severity: severe Severity scale (1-10): 10 Consistency: constant Worsens with: none Context- Dental: history of dental caries Associated Symptoms: gum swelling, toothache - Related Data Previous Rx's Medication Instructions Recorded Acetaminophen Tab [Tylenol] 650 mg PO Q6H #30 tab 08/10/21 Docusate [Colace] 100 mg PO BID #20 capsule 08/10/21 Ibuprofen [Motrin] 600 mg PO Q6HR PRN #40 tab 08/10/21 oxyCODONE HCL [OxyIR] 5 mg PO Q6H PRN 3 Days #10 tab 08/10/21 Ketorolac [Toradol] 10 mg PO Q6HR PRN #12 tab 11/24/21 Penicillin V Potassium [Pen Vee K] 500 mg PO Q6H 7 Days #28 tablet 11/24/21 Cephalexin [Keflex] 500 mg PO Q6HR 7 Days #28 cap 06/15/22 Sulfamethox-Tmp 800-160Mg [Bactrim 1 tab PO Q12HR 7 Days #14 tab 06/15/22 DS 800-160 mg] Amoxic-Pot Clav 875-125Mg 1 tab PO Q12HR 7 Days #14 tab 06/20/23 [Augmentin 875-125] Amoxic-Pot Clav 875-125Mg 1 tab PO Q12HR #20 tablet 07/03/23 [Augmentin 875-125] Allergies Allergy/AdvReac Type Severity Reaction Status Date / Time No Known Allergies Allergy Verified 07/03/23 21:31 Review of Systems ROS Statement: Those systems with pertinent positive or pertinent negative responses have been documented in the HPI. ROS Other: All systems not noted in ROS Statement are negative. Past Medical History Past Medical History: GERD/Reflux Additional Past Medical History / Comment(s): kidney stones, migraines, gallstones, History of Any Multi-Drug Resistant Organisms: None Reported Past Surgical History: No Surgical Hx Reported Additional Past Surgical History / Comment(s): I&D Past Anesthesia/Blood Transfusion Reactions: No Reported Reaction Past Psychological History: Anxiety Smoking Status: Current every day smoker Past Alcohol Use History: Rare Past Drug Use History: Marijuana - Past Family History Father Family Medical History: Deep Vein Thrombosis (DVT) General Exam Limitations: no limitations General appearance: alert, in no apparent distress Head exam: Present: atraumatic, normocephalic, normal inspection Eye exam: Present: normal appearance, PERRL, EOMI. Absent: scleral icterus, conjunctival injection, periorbital swelling ENT exam: Present: normal exam, mucous membranes moist Neck exam: Present: normal inspection. Absent: tenderness, meningismus, lymphadenopathy Respiratory exam: Present: normal lung sounds bilaterally. Absent: respiratory distress, wheezes, rales, rhonchi, stridor Cardiovascular Exam: Present: regular rate, normal rhythm, normal heart sounds. Absent: systolic murmur, diastolic murmur, rubs, gallop, clicks GI/Abdominal exam: Present: soft, normal bowel sounds. Absent: distended, tenderness, guarding, rebound, rigid Extremities exam: Present: normal inspection, full ROM, normal capillary refill. Absent: tenderness, pedal edema, joint swelling, calf tenderness Back exam: Present: normal inspection Neurological exam: Present: alert, oriented X3, CN II-XII intact Psychiatric exam: Present: normal affect, normal mood Skin exam: Present: warm, dry, intact, normal color. Absent: rash Course Vital Signs 07/03/23 21:29 Temperature 97.9 F Pulse Rate 61 Respiratory 16 Rate Blood Pressure 156/92 O2 Sat by Pulse 99 Oximetry - Reevaluation(s) Reevaluation #1: Medical records reviewed Reevaluation #2: Patient symptoms improved Reevaluation #3: Patient informed of results questions answered Reevaluation #4: Was pt. sent in by a medical professional or institution (, PA, RN FIELD, urgent care, hospital, or usp...) When possible be specific @ -no Did you speak to anyone other than the patient for history (EMS, parent, family, police, friend...)? What history was obtained from this source @ -no Did you review nursing and triage notes (agree or disagree)? Why? @ -agree Are old charts reviewed (outside hosp., previous admission, EMS record, old EKG, old radiological studies, urgent care reports/EKG's, usp records)? Report findings @ -yes Differential Diagnosis (chest pain, altered mental status, abdominal pain women, abdominal pain men, vaginal bleeding, weakness, fever, dyspnea, syncope, headache, dizziness, GI bleed, back pain, seizure, CVA, palpatations, mental health, musculoskeletal)? @ -prior EKG interpreted by me (3pts min.). @ -no X-rays interpreted by me (1pt min.). @ -no CT interpreted by me (1pt min.). @ -no U/S interpreted by me (1pt. min.). @ -no What testing was considered but not performed or refused? (CT, X-rays, U/S, labs)? Why? @ -none What meds were considered but not given or refused? Why? @ -none Did you discuss the management of the patient with other professionals (professionals i.e. , PA, RN FIELD, lab, RT, psych nurse, social media designer, associate director of development, teacher, correctional officer captain, geriatric case manager)? Give summary @ -no Was smoking cessation discussed for >3mins.? @ -no Was critical care preformed (if so, how long)? @ -no Were there social determinants of health that impacted care today? How? (Homelessness, low income, unemployed, alcoholism, drug addiction, transportation, low edu. Level, literacy, decrease access to med. care, group home, rehab)? @ -none Was there de-escalation of care discussed even if they declined (Discuss DNR or withdrawal of care, Hospice)? DNR status @ -no What co-morbidities impacted this encounter? (DM, HTN, Smoking, COPD, CAD, Cancer, CVA, ARF, Chemo, Hep., AIDS, mental health diagnosis, sleep apnea, morbid obesity)? @ -none Was patient admitted / discharged? Hospital course, mention meds given and route, prescriptions, significant lab abnormalities, going to OR and other pertinent info. @ -27 male to ER for evaluation of severe dental pain here in the ER dental pain with dental abscess on exam and history. Patient will continue to follow- up as an outpatient. Discharge Undiagnosed new problem with uncertain prognosis? @ -no Drug Therapy requiring intensive monitoring for toxicity (Heparin, Nitro, Insulin, Cardizem)? @ -no Were any procedures done? @ -no Diagnosis/symptom? @ -Dental pain dental abscess Acute, or Chronic, or Acute on Chronic? @ -Acute Uncomplicated (without systemic symptoms) or Complicated (systemic symptoms)? @ -Complicated Side effects of treatment? @ -no Exacerbation, Progression, or Severe Exacerbation? @ -exacerbation Poses a threat to life or bodily function? How? (Chest pain, [place], [place], pneumonia, PE, COPD, DKA, ARF, appy, cholecystitis, CVA, Diverticulitis, Homicidal, Suicidal, threat to staff... and all critical care pts) @ -no Medical Decision Making - Medical Decision Making 27 male to ER for evaluation of severe dental pain here in the ER dental pain with dental abscess on exam and history. Patient will continue to follow-up as an outpatient. Disposition Clinical Impression: Dental abscess Disposition: HOME SELF-CARE Condition: Good Instructions (If sedation given, give patient instructions): Dental Abscess (ED), Toothache (ED) Prescriptions: Amoxic-Pot Clav 875-125Mg [Augmentin 875-125] 1 tab PO Q12HR #20 tablet Is patient prescribed a controlled substance at d/c from ED?: No Referrals: José Miguel Gonsalves MD [Primary Care Provider] - 1-2 days Time of Disposition: 22:10
[2023-07-03] MEDS: AMOXIC-POT CLAV 875-125MG 1 EACH TAB PO STA (22:25)
[2023-07-03] MEDS: IBUPROFEN 800 MG TAB PO STA (22:25)
[2023-07-03] MEDS: AMOXIC-POT CLAV 875MG STARTER PACK 2 TAB BTL PO STA (22:26)
[2023-07-03] MEDS: IBUPROFEN 600 MG STARTER PACK 4 TAB BTL PO STA (22:26)
[2023-07-03] MEDS: traMADol 50 MG TAB PO STA (22:26)
[2023-07-03] MEDS: ACET/COD 300 MG/30 MG STARTER PACK 6 TAB BTL PO STA (22:26)
[2023-07-03] MEDS: traMADol 50 MG STARTER PACK 3 TAB BTL PO STA (22:27)
== END 2023-07-03 22:40 | disposition home or self-care (01) ==
LOC: EC 21:27
DX: K04.7 Periapical abscess without sinus (principal); F17.200 Nicotine dependence, unspecified, uncomplicated
CPT/HCPCS: 99282

== ENCOUNTER 2024-02-09 11:07 | Emergency (ER) | payer OTHER ==
[2024-02-09 11:20] VITALS: RESP 18
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
[2024-02-09] MEDS: SODIUM CHLORIDE 0.9% 1,000 ML IV STA (12:19)
[2024-02-09] MEDS: KETOROLAC 15 MG/ML 1 ML VIAL IVP STA ×2 (12:20→14:41)
[2024-02-09] MEDS: HYDROmorphone 1 MG/ML 1 ML SYRINGE IVP STA ×2 (12:21→14:40)
[2024-02-09 12:30] LABS: Basophils # (A) 0.1 k/uL (0-0.2); Basophils % (A) 1 %; Eosinophils # (A) 0.2 k/uL (0-0.7); Eosinophils % (A) 2 %; HGB 15.9 gm/dL (13.0-17.5); Lymphocytes # (A) 2.2 k/uL (1.0-4.8); Lymphocytes % (A) 18 %; MCH 31.1 pg (25.0-35.0); MCHC 34.6 g/dL (31.0-37.0); MCV 89.8 fL (80.0-100.0); Mean Platelet Volume 8.1; Monocytes # (A) 0.7 k/uL (0-1.0); Monocytes % (A) 6 %; Neutrophils % (A) 73 %; Platelet Count 248 k/uL (150-450); RBC 5.13 m/uL (4.30-5.90); RDW 12.5 % (11.5-15.5); WBC 12.3 k/uL (3.8-10.6)
[2024-02-09 12:45] LABS: ALT 37 U/L (4-49); AST 27 U/L (17-59); African American GFR (CKD) >90 (>60 ml/min/1.73 sqM); Albumin 4.2 g/dL (3.5-5.0); Alkaline Phosphatase 76 U/L (38-126); Anion Gap 5 mmol/L; Blood Urea Nitrogen 10 mg/dL (9-20); C Reactive Protein 3.6 mg/dL (<1.0); Calcium 9.4 mg/dL (8.4-10.2); Carbon Dioxide 22 mmol/L (22-30); Chloride 109 mmol/L (98-107); Glucose 92 mg/dL (74-99); Non-African American GFR(CKD) >90 (>60 ml/min/1.73 sqM); Potassium 4.3 mmol/L (3.5-5.1); Sodium 136 mmol/L (137-145); Total Bilirubin 0.5 mg/dL (0.2-1.3); Total Protein 6.7 g/dL (6.3-8.2)
--- NOTE | 2024-02-09 14:20 | CT ---
CT pelvis with contrast HISTORY: Perineal abscess. COMPARISON: CT abdomen and pelvis dated 06/14/2022. TECHNIQUE: Multiple axial images are obtained through the pelvis following the uneventful administrat ion of nonionic IV contrast material. FINDINGS: There is no peritoneal abscess or fluid collection. The soft tissues are unremarkable. Visualized bowel loops are normal. The urinary bladder is normal. The prostate gland is normal in size. There is no pelvic adenopathy. IMPRESSION: No evidence of perineal abscess. [facility], Workstation: [id number] 02/09/2024 2:17 PM
[2024-02-09] MEDS: ACET/COD 300 MG/30 MG STARTER PACK 6 TAB BTL PO STA (14:41)
[2024-02-09 14:54] VITALS: BP 114/73; PULSE 74; TEMP 98.6
[2024-02-09 19:31] LABS: Erythrocyte Sedimentation Rate 16 mm/Hr (0-15)
== END 2024-02-09 14:53 | disposition home or self-care (01) ==
LOC: EC 11:07
DX: L02.215 Cutaneous abscess of perineum (principal); F17.200 Nicotine dependence, unspecified, uncomplicated
CPT/HCPCS: 36415; 80053; 85652; 83605; 85025; 86140; 72193; 99284; 96374; 96375; 96376 ×2; 96361; J1171; J1885; Q9967

== ENCOUNTER 2024-07-30 17:40 | Emergency (ER) | payer OTHER ==
[2024-07-30] MEDS: SODIUM CHLORIDE 0.9% 1,000 ML IV STA (17:58)
[2024-07-30 18:09] LABS: Basophils # (A) 0.06 10*3/uL (0.00-0.10); Basophils % (A) 0.5 %; Eosinophils # (A) 0.05 10*3/uL (0.04-0.35); Eosinophils % (A) 0.4 %; HCT 46.2 % (39.6-50.0); HGB 16.6 g/dL (13.0-17.0); Lymphocytes # (A) 2.76 10*3/uL (0.90-5.00); Lymphocytes % (A) 23.7 %; MCH 30.7 pg (27.0-32.0); MCHC 35.9 g/dL (32.0-37.0); MCV 85.4 fL (80.0-97.0); Mean Platelet Volume 11.3 fL (9.5-12.2); Monocytes # (A) 0.98 10*3/uL (0.20-1.00); Monocytes % (A) 8.4 %; Neutrophils # (A) 7.77 10*3/uL (1.80-7.70); Neutrophils % (A) 66.7 %; Platelet Count 272 10*3/uL (140-440); RBC 5.41 10*6/uL (4.40-5.60); RDW 11.9 % (11.5-14.5); WBC 11.65 10*3/uL (4.50-10.00)
--- NOTE | 2024-07-30 18:18 | ED ---
General Adult HPI - General Chief complaint: Altered Mental Status Stated complaint: Syncope Time Seen by Provider: 07/30/24 17:46 Source: patient, RN notes reviewed, old records reviewed Mode of arrival: EMS Limitations: no limitations - History of Present Illness Initial comments: 28 yo male presenting with altered mental status, possible syncopal episode. History limited from the patient he is able to give some historic details but he is slow to respond. Paramedics report that he had been lifting something over a fence became lightheaded and either briefly passed out or nearly passed out. He was somewhat confused after this. No reported focal numbness or weakness. Blood sugar was normal during transport. Patient is more awake at the time of my evaluation but is still slow to respond. Denying pain complaints. - Related Data Home Medications Medication Instructions Recorded Confirmed No Known Home Medications 07/30/24 07/30/24 Allergies Allergy/AdvReac Type Severity Reaction Status Date / Time No Known Allergies Allergy Verified 07/30/24 19:10 Review of Systems ROS Statement: Those systems with pertinent positive or pertinent negative responses have been documented in the HPI. ROS Other: All systems not noted in ROS Statement are negative. Past Medical History Past Medical History: GERD/Reflux Additional Past Medical History / Comment(s): kidney stones, migraines, gallstones, History of Any Multi-Drug Resistant Organisms: None Reported Past Surgical History: No Surgical Hx Reported Additional Past Surgical History / Comment(s): I&D Past Anesthesia/Blood Transfusion Reactions: No Reported Reaction Past Psychological History: Anxiety Smoking Status: Current every day smoker Past Alcohol Use History: Rare Past Drug Use History: Marijuana - Past Family History Father Family Medical History: Deep Vein Thrombosis (DVT) General Exam Limitations: no limitations General appearance: alert, in no apparent distress Head exam: Present: atraumatic, normocephalic Eye exam: Present: normal appearance, PERRL ENT exam: Present: mucous membranes dry Neck exam: Present: normal inspection. Absent: tenderness, meningismus Respiratory exam: Present: normal lung sounds bilaterally. Absent: respiratory distress Cardiovascular Exam: Present: normal rhythm, tachycardia GI/Abdominal exam: Present: soft. Absent: distended, tenderness Extremities exam: Present: normal inspection, normal capillary refill Neurological exam: Present: alert, oriented X3 (Slow to respond), CN II-XII intact. Absent: motor sensory deficit Psychiatric exam: Present: normal affect, normal mood Skin exam: Present: warm, dry, intact. Absent: cyanosis, diaphoretic Course Vital Signs 07/30/24 07/30/24 07/30/24 17:49 17:53 18:34 Temperature 98.9 F 98.9 F Pulse Rate 110 H 105 H 93 Respiratory 20 20 20 Rate Blood Pressure 143/91 143/91 128/81 O2 Sat by Pulse 99 99 98 Oximetry 07/30/24 07/30/24 19:00 19:47 Temperature 98.0 F Pulse Rate 78 92 Respiratory 16 16 Rate Blood Pressure 124/75 118/68 O2 Sat by Pulse 98 97 Oximetry - Reevaluation(s) Reevaluation #1: 07/30/24 20:52 Patient requesting discharge stating he feels back to normal. Vital signs are stable at this time. Medical Decision Making - Medical Decision Making Was pt. sent in by a medical professional or institution (, PA, INK JET OPERATOR, urgent care, hospital, or skilled nursing...) When possible be specific @ -No Did you speak to anyone other than the patient for history (EMS, parent, family, police, friend...)? What history was obtained from this source @Paramedics. Did you review nursing and triage notes (agree or disagree)? Why? @ -I reviewed and agree with nursing and triage notes Were old charts reviewed (outside hosp., previous admission, EMS record, old EKG, old radiological studies, urgent care reports/EKG's, skilled nursing records)? Report findings @ -No old charts were reviewed Differential Syncope: Valvular disease, hypertrophic cardiomyopathy, pulmonary embolism, tamponade, tachycardia, bradycardia, MO, hypovolemia, hemorrhage, dissection, anemia, intracranial hemorrhage, seizure, hypoglycemia, carbon monoxide poisoning, this is not meant to be an all-inclusive list. EKG interpreted by me (3pts min.). @Sinus tach rate of 117, WA interval 145, QRS duration 100, QTc [address] segment elevation. X-rays interpreted by me (1pt min.). @ -[Chest x-ray negative for acute cardiopulmonary findings CT interpreted by me (1pt min.). @ -CT brain negative for intracranial hemorrhage or mass effect. U/S interpreted by me (1pt. min.). @ -None done What testing was considered but not performed or refused? (CT, X-rays, U/S, labs)? Why? @ -None What meds were considered but not given or refused? Why? @ -None Did you discuss the management of the patient with other professionals (professionals i.e. , PA, INK JET OPERATOR, lab, RT, psych nurse, social service worker, vacuum tank tender, teacher, equal opportunity officer, casey saw operator)? Give summary @ -No Was smoking cessation discussed for >3mins.? @ -No Was critical care preformed (if so, how long)? @ -No Were there social determinants of health that impacted care today? How? (Homelessness, low income, unemployed, alcoholism, drug addiction, transpo rtation, low edu. Level, literacy, decrease access to med. care, fpc, rehab)? @ -No Was there de-escalation of care discussed even if they declined (Discuss DNR or withdrawal of care, Hospice)? DNR status @ -No What co-morbidities impacted this encounter? (DM, HTN, Smoking, COPD, CAD, Cancer, CVA, ARF, Chemo, Hep., AIDS, mental health diagnosis, sleep apnea, morbid obesity)? @ -None Was patient admitted / discharged? Hospital course, mention meds given and route, prescriptions, significant lab abnormalities, going to OR and other pertinent info. @ -28-year-old male presenting for possible syncopal episode. Initial history is limited. Full workup is ordered in the emergency department including EKG, lab testing, head CT, chest x-ray. Results of workup in the emergency department are unremarkable. Patient's vital signs are stable throughout his stay. He regains a normal level of consciousness without complaint. He is unable to specify his exact symptoms at the onset of this event. It is possible that he was postictal. Head CT negative. Laboratory testing unremarkable. He is in sinus rhythm. Ultimately the patient's vital signs remain normal and he is eager for discharge. He is given strict return parameters and request to follow-up with his primary care provider closely. Undiagnosed new problem with uncertain prognosis? @ -No Drug Therapy requiring intensive monitoring for toxicity (Heparin, Nitro, Insulin, Cardizem)? @ -No Were any procedures done? @ -No Diagnosis/symptom? @ -Syncope Acute, or Chronic, or Acute on Chronic? @ -Acute Uncomplicated (without systemic symptoms) or Complicated (systemic symptoms)? @ -Default Side effects of treatment? @ -No Exacerbation, Progression, or Severe Exacerbation? @ -No Poses a threat to life or bodily function? How? (Chest pain, USA, MO, pneumonia, PE, COPD, DKA, ARF, appy, cholecystitis, CVA, Diverticulitis, Homicidal, Suicidal, threat to staff... and all critical care pts) @ -Low risk at this time - Lab Data Result diagrams: 07/30/24 17:50 07/30/24 17:50 Lab Results 07/30/24 07/30/24 07/30/24 Range/Units 17:50 17:50 17:50 WBC 11.65 H (4.50-10.00) 10*3/uL RBC 5.41 (4.40-5.60) 10*6/uL Hgb 16.6 (13.0-17.0) g/dL Hct 46.2 (39.6-50.0) % MCV 85.4 (80.0-97.0) fL MCH 30.7 (27.0-32.0) pg MCHC 35.9 (32.0-37.0) g/dL Plt Count 272 (140-440) 10*3/uL MPV 11.3 (9.5-12.2) fL Immature Gran % (Auto) 0.3 % Neutrophils % 66.7 % Lymphocytes % 23.7 % Monocytes % 8.4 % Eosinophils % 0.4 % Basophils % 0.5 % Immature Gran # 0.03 (0.00-0.04) 10*3/uL Neutrophils # 7.77 H (1.80-7.70) 10*3/uL Lymphocytes # 2.76 (0.90-5.00) 10*3/uL Monocytes # 0.98 (0.20-1.00) 10*3/uL Eosinophils # 0.05 (0.04-0.35) 10*3/uL Basophils # 0.06 (0.00-0.10) 10*3/uL PT 11.0 (10.0-12.5) sec INR 1.0 (<1.2) APTT 21.3 L (22.0-30.0) sec D-Dimer <0.17 (<0.60) mg/L FEU Sodium 139 (137-145) mmol/L Potassium 3.9 (3.5-5.1) mmol/L Chloride 104 (98-107) mmol/L Carbon Dioxide 17 L (22-30) mmol/L Anion Gap 18 mmol/L BUN 13 (9-20) mg/dL Creatinine 1.00 (0.66-1.25) mg/dL Est GFR (CKD-EPI)AfAm >90 (>60 ml/min/1.73 sqM) Est GFR (CKD-EPI)NonAf >90 (>60 ml/min/1.73 sqM) Glucose 103 H (74-99) mg/dL Calcium 10.3 H (8.4-10.2) mg/dL Magnesium 1.9 (1.6-2.3) mg/dL Total Bilirubin 0.7 (0.2-1.3) mg/dL AST 34 (17-59) U/L ALT 47 (4-49) U/L Alkaline Phosphatase 83 (38-126) U/L Troponin I (0.000-0.034) ng/mL Total Protein 8.0 (6.3-8.2) g/dL Albumin 5.0 (3.5-5.0) g/dL Urine Color Urine Appearance (Clear) Urine pH (5.0-8.0) Ur Specific Elmer (1.001-1.035) Urine Protein (Negative) Urine Glucose (UA) (Negative) Urine Ketones (Negative) Urine Blood (Negative) Urine Nitrite (Negative) Urine Bilirubin (Negative) Urine Urobilinogen (<2.0) mg/dL Ur Leukocyte Esterase (Negative) Urine RBC (0-5) /hpf Urine WBC (0-5) /hpf Ur Squamous Epith Cells (0-4) /hpf Hyaline Casts (0-2) /lpf Urine Mucus (None) /hpf Urine Opiates Screen (NotDetected) Ur Oxycodone Screen (NotDetected) Urine Methadone Screen (NotDetected) Ur Barbiturates Screen (NotDetected) U Tricyclic Antidepress (NotDetected) Ur Phencyclidine Scrn (NotDetected) Ur Amphetamines Screen (NotDetected) U Methamphetamines Scrn (NotDetected) U Benzodiazepines Scrn (NotDetected) Urine Cocaine Screen (NotDetected) U Marijuana (THC) Screen (NotDetected) Serum Alcohol mg/dL 07/30/24 07/30/24 07/30/24 Range/Units 17:50 17:50 19:00 WBC (4.50-10.00) 10*3/uL RBC (4.40-5.60) 10*6/uL Hgb (13.0-17.0) g/dL Hct (39.6-50.0) % MCV (80.0-97.0) fL MCH (27.0-32.0) pg MCHC (32.0-37.0) g/dL Plt Count (140-440) 10*3/uL MPV (9.5-12.2) fL Immature Gran % (Auto) % Neutrophils % % Lymphocytes % % Monocytes % % Eosinophils % % Basophils % % Immature Gran # (0.00-0.04) 10*3/uL Neutrophils # (1.80-7.70) 10*3/uL Lymphocytes # (0.90-5.00) 10*3/uL Monocytes # (0.20-1.00) 10*3/uL Eosinophils # (0.04-0.35) 10*3/uL Basophils # (0.00-0.10) 10*3/uL PT (10.0-12.5) sec INR (<1.2) APTT (22.0-30.0) sec D-Dimer (<0.60) mg/L FEU Sodium (137-145) mmol/L Potassium (3.5-5.1) mmol/L Chloride (98-107) mmol/L Carbon Dioxide (22-30) mmol/L Anion Gap mmol/L BUN (9-20) mg/dL Creatinine (0.66-1.25) mg/dL Est GFR (CKD-EPI)AfAm (>60 ml/min/1.73 sqM) Est GFR (CKD-EPI)NonAf (>60 ml/min/1.73 sqM) Glucose (74-99) mg/dL Calcium (8.4-10.2) mg/dL Magnesium (1.6-2.3) mg/dL Total Bilirubin (0.2-1.3) mg/dL AST (17-59) U/L ALT (4-49) U/L Alkaline Phosphatase (38-126) U/L Troponin I <0.012 (0.000-0.034) ng/mL Total Protein (6.3-8.2) g/dL Albumin (3.5-5.0) g/dL Urine Color Yellow Urine Appearance Clear (Clear) Urine pH 6.0 (5.0-8.0) Ur Specific Elmer 1.027 (1.001-1.035) Urine Protein 1+ H (Negative) Urine Glucose (UA) Negative (Negative) Urine Ketones Trace H (Negative) Urine Blood Negative (Negative) Urine Nitrite Negative (Negative) Urine Bilirubin Negative (Negative) Urine Urobilinogen 2.0 (<2.0) mg/dL Ur Leukocyte Esterase Negative (Negative) Urine RBC <1 (0-5) /hpf Urine WBC 2 (0-5) /hpf Ur Squamous Epith Cells <1 (0-4) /hpf Hyaline Casts 21 H (0-2) /lpf Urine Mucus Few H (None) /hpf Urine Opiates Screen (NotDetected) Ur Oxycodone Screen (NotDetected) Urine Methadone Screen (NotDetected) Ur Barbiturates Screen (NotDetected) U Tricyclic Antidepress (NotDetected) Ur Phencyclidine Scrn (NotDetected) Ur Amphetamines Screen (NotDetected) U Methamphetamines Scrn (NotDetected) U Benzodiazepines Scrn (NotDetected) Urine Cocaine Screen (NotDetected) U Marijuana (THC) Screen (NotDetected) Serum Alcohol <10 mg/dL 07/30/24 Range/Units 19:00 WBC (4.50-10.00) 10*3/uL RBC (4.40-5.60) 10*6/uL Hgb (13.0-17.0) g/dL Hct (39.6-50.0) % MCV (80.0-97.0) fL MCH (27.0-32.0) pg MCHC (32.0-37.0) g/dL Plt Count (140-440) 10*3/uL MPV (9.5-12.2) fL Immature Gran % (Auto) % Neutrophils % % Lymphocytes % % Monocytes % % Eosinophils % % Basophils % % Immature Gran # (0.00-0.04) 10*3/uL Neutrophils # (1.80-7.70) 10*3/uL Lymphocytes # (0.90-5.00) 10*3/uL Monocytes # (0.20-1.00) 10*3/uL Eosinophils # (0.04-0.35) 10*3/uL Basophils # (0.00-0.10) 10*3/uL PT (10.0-12.5) sec INR (<1.2) APTT (22.0-30.0) sec D-Dimer (<0.60) mg/L FEU Sodium (137-145) mmol/L Potassium (3.5-5.1) mmol/L Chloride (98-107) mmol/L Carbon Dioxide (22-30) mmol/L Anion Gap mmol/L BUN (9-20) mg/dL Creatinine (0.66-1.25) mg/dL Est GFR (CKD-EPI)AfAm (>60 ml/min/1.73 sqM) Est GFR (CKD-EPI)NonAf (>60 ml/min/1.73 sqM) Glucose (74-99) mg/dL Calcium (8.4-10.2) mg/dL Magnesium (1.6-2.3) mg/dL Total Bilirubin (0.2-1.3) mg/dL AST (17-59) U/L ALT (4-49) U/L Alkaline Phosphatase (38-126) U/L Troponin I (0.000-0.034) ng/mL Total Protein (6.3-8.2) g/dL Albumin (3.5-5.0) g/dL Urine Color Urine Appearance (Clear) Urine pH (5.0-8.0) Ur Specific Elmer (1.001-1.035) Urine Protein (Negative) Urine Glucose (UA) (Negative) Urine Ketones (Negative) Urine Blood (Negative) Urine Nitrite (Negative) Urine Bilirubin (Negative) Urine Urobilinogen (<2.0) mg/dL Ur Leukocyte Esterase (Negative) Urine RBC (0-5) /hpf Urine WBC (0-5) /hpf Ur Squamous Epith Cells (0-4) /hpf Hyaline Casts (0-2) /lpf Urine Mucus (None) /hpf Urine Opiates Screen Not Detected (NotDetected) Ur Oxycodone Screen Not Detected (NotDetected) Urine Methadone Screen Not Detected (NotDetected) Ur Barbiturates Screen Detected H (NotDetected) U Tricyclic Antidepress Not Detected (NotDetected) Ur Phencyclidine Scrn Not Detected (NotDetected) Ur Amphetamines Screen Not Detected (NotDetected) U Methamphetamines Scrn Not Detected (NotDetected) U Benzodiazepines Scrn Not Detected (NotDetected) Urine Cocaine Screen Not Detected (NotDetected) U Marijuana (THC) Screen Detected H (NotDetected) Serum Alcohol mg/dL Disposition Clinical Impression: Syncope Disposition: HOME SELF-CARE Condition: Fair Instructions (If sedation given, give patient instructions): Syncope (DC) Is patient prescribed a controlled substance at d/c from ED?: No Referrals: José Miguel Gonsalves MD [Primary Care Provider] - 1-2 days Time of Disposition: 20:55
[2024-07-30 18:28] LABS: ALT 47 U/L (4-49); AST 34 U/L (17-59); African American GFR (CKD) >90 (>60 ml/min/1.73 sqM); Alkaline Phosphatase 83 U/L (38-126); Anion Gap 18 mmol/L; Blood Urea Nitrogen 13 mg/dL (9-20); Calcium 10.3 mg/dL (8.4-10.2); Carbon Dioxide 17 mmol/L (22-30); Chloride 104 mmol/L (98-107); Glucose 103 mg/dL (74-99); Magnesium 1.9 mg/dL (1.6-2.3); Non-African American GFR(CKD) >90 (>60 ml/min/1.73 sqM); Potassium 3.9 mmol/L (3.5-5.1); Sodium 139 mmol/L (137-145); Total Bilirubin 0.7 mg/dL (0.2-1.3)
[2024-07-30 18:36] LABS: Partial Thromboplastin Time 21.3 sec (22.0-30.0)
--- NOTE | 2024-07-30 18:39 | CT ---
EXAMINATION TYPE: CT brain wo con DATE OF EXAM: 07/30/2024 6:28 PM COMPARISON: 07/10/2014 CLINICAL INDICATION: Male, 28 years old with history of syncope, syncope, AMS TECHNIQUE: CT of the brain is performed utilizing 3 mm thick sections through the posterior fossa and 3 mm thick sections through the remaining calvarium. Study is performed within 24 hours of arrival to the hospital. Contrast used: mL of , (none if empty) CT DLP: 1155.4 mGycm, Automated exposure control for dose reduction was used. FINDINGS: No abnormal hyperdensity is present to suggest an acute intracranial hemorrhage. No mass lesion is evident. No acute infarcts are evident. Ventricles and sulci are appropriate for the patient age. Paranasal sinuses and mastoid air cells within the [id number] are clear. IMPRESSION: 1. No acute intracranial process. Follow up MRI can be performed as clinically indicated. [facility], , 07/30/2024 6:36 PM
[2024-07-30 19:02] VITALS: RESP 16
[2024-07-30 19:10] LABS: Appearance,Urine Clear (Clear); Bilirubin,Urine Negative (Negative); Blood,Urine Negative (Negative); Color,Urine Yellow; Glucose,Urine (UA) Negative (Negative); Hyaline Casts,Urine 21 /lpf (0-2); Ketones,Urine Trace (Negative); Leukocyte Esterase,Urine Negative (Negative); Mucus,Urine Few /hpf; Nitrite,Urine Negative (Negative); Protein,Urine 1+ (Negative); RBC,Urine <1 /hpf (0-5); Specific Gravity,Urine 1.027 (1.001-1.035); Squamous Epithelial Cell,Urine <1 /hpf (0-4); WBC,Urine 2 /hpf (0-5)
[2024-07-30 19:22] LABS: Amphetamine Screen,Urine Not Detected (NotDetected); Barbiturate Screen,Urine Detected (NotDetected); Benzodiazepines Screen,Urine Not Detected (NotDetected); Cocaine Screen,Urine Not Detected (NotDetected); Methadone Screen, Urine Not Detected (NotDetected); Opiate Screen,Urine Not Detected (NotDetected); Oxycodone Screen, Urine Not Detected (NotDetected); Phencyclidine Screen,Urine Not Detected (NotDetected); Tricyclic Antidepressant,Urine Not Detected (NotDetected); Urn Cannabinoid Scrn Detected (NotDetected)
--- NOTE | 2024-07-30 19:32 | XR ---
EXAMINATION TYPE: XR chest 2V DATE OF EXAM: 07/30/2024 7:17 PM COMPARISON: 07/10/2014 CLINICAL INDICATION: Male, 28 years old with history of syncope, TECHNIQUE: XR chest 2V view(s) obtained. FINDINGS: The heart size is normal. The pulmonary vasculature is normal. The lungs are clear. IMPRESSION: 1. No acute pulmonary process. [facility], , 07/30/2024 7:30 PM
[2024-07-30 19:51] VITALS: TEMP 98
[2024-07-30 21:01] VITALS: BP 122/84; PULSE 67
== END 2024-07-30 21:13 | disposition home or self-care (01) ==
LOC: EC 17:40
DX: R55 Syncope and collapse (principal); F17.200 Nicotine dependence, unspecified, uncomplicated
CPT/HCPCS: 36415; 70450; 71046; 80053; 80306; 80320; 81001; 83735; 84484; 85025; 85379; 85610; 85730; 93005; 96360; 99285